=== PATIENT | female | born 1985 | race Caucasian/White ===

== ENCOUNTER 2016-12-31 09:40 | Emergency (ER) | payer OTHER ==
--- NOTE | 2016-12-31 10:31 | REP ---
Pelvis, right hip: Four views. History: Trauma. Findings: AP views of the pelvis and AP and frog-leg views of the right hip are presented. These show an intact bony pelvic ring. No hip or sacral fracture is seen. The visualized bowel gas pattern is normal. Proximal femurs are intact. Femoral heads are smooth and rounded. No hip fracture is seen. Impression: No fracture noted. Signed by Dannie Jackson MD 12/31/2016 01:55 P
--- NOTE | 2016-12-31 10:52 | EDDOCDS ---
Nurse's Notes [facility] Name: Jody Keenan Age: 31 yrs Sex: Female : 1985 Arrival Date: 12/31/2016 Time: 09:40 Bed PD Private MD: Mary Lou Arias M. Diagnosis: Contusion of right hip;Sprain of other specified parts of right knee Presentation: 12/31 09:44 Presenting complaint: Patient states: slipped on the ice and has pain to right hip and jo3 right knee. Adult Sepsis Screening: The patient does not have new or worsening altered mentation. Patient's respiratory rate is less than 22. Systolic blood pressure is greater than 100. Patient has a qSOFA score of 0- Negative Sepsis Screen. Suicide/Homicide risk assessment- the patient denies having any suicidal and/or homicidal ideations and does not present with any other emotional, behavioral or mental health complaints. Status: Patient is not a support services specialist or dependent. Transition of care: patient was not received from another setting of care. 09:44 Acuity: LORI Level 4 jo3 09:44 Method Of Arrival: Walkin/Carried/Asstd jo3 Triage Assessment: 09:45 General: Appears in no apparent distress. HIV screening NA for this visit Offered jo3 previously. Neurological: Level of Consciousness is awake, alert, Oriented to person, place, time. Respiratory: Airway is patent Respiratory effort is even, unlabored. Derm: Skin is pink, warm & dry. 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 Benadryl 25 mg Oral cap 1 cap as needed 2. Flovent Inhl as needed 3. Protonix 20 mg Oral TbEC 1 tab once daily 4. Wellbutrin 150 mg Oral 1 tab daily 5. Xanax 1 mg Oral tab as needed 6. Prozac 10 mg Oral cap once daily - PMHx: Anxiety; GERD; Kidney stones; Migraines; - PSHx: D & C; Lithotripsy; Gastric Bypass; Tubal ligation; Uterine Ablation; Adenoidectomy; Tonsillectomy; teeth extractions using general anesthesia; - Social history: Smoking status: Patient uses tobacco products, light tobacco smoker. No barriers to communication noted, The patient speaks fluent Tajik, Speaks appropriately for age. - Family history: Not pertinent. - : The pt / caregiver states he / she is not on anticoagulants. Home medication list is obtained from the patient. - Exposure Risk Screening:: None identified. Screenin:49 Screening information is obtained from the patient. Fall risk: No risks identified. jo3 Assistance ADL's: requires no assistance with activities of daily living. Abuse/DV Screen: The patient / caregiver reports he/she is: not in a situation that causes fear, pain or injury. Nutritional screening: No deficits noted. Advance Directives: There is no active DNR order. home support is adequate. Assessment: 10:49 General: Appears in no apparent distress, Behavior is appropriate for age, cooperative. jo3 Neurological: Level of Consciousness is awake, alert, Oriented to person, place, time. Respiratory: Airway is patent Respiratory effort is even, unlabored. Vital Signs: 09:42 BP 127 / 76; Pulse 50; Resp 20; Temp 98.1(O); Pulse Ox 100% on R/A; Weight 70.31 kg elp (R); Height 5 ft. 5 in. (165.10 cm) (R); Pain 10/10; 10:42 BP 115 / 61; Pulse 86; Resp 18; Temp 97.8(O); Pulse Ox 98% on R/A; Pain 10/10; ct3 09:42 Body Mass Index 25.79 (70.31 kg, 165.10 cm) [facility] Vitals: 09:42 Log In Time: December 31, 2016 at 09:40. elp ED Course: 09:41 Patient visited by Roselia Luu PCA. elp 09:41 Mary Lou Arias is Private Physician. elp 09:41 Patient moved to Waiting elp 09:42 Patient visited by Roselia Luu PCA. elp 09:42 Patient moved to Pre RCE elp 09:44 Triage Initiated jo3 09:47 Patient visited by Cleo Queen RN. jo3 09:47 [facility] btw 09:47 Jody De La Vega MD is Attending Physician. btw 09:47 Patient visited by Frank Poe PA. btw 09:47 Patient moved to Triage 1 jo3 09:54 Patient moved to TR1 ct3 10:17 Patient moved to PD2 / 27 ck1 10:18 Patient visited by Shilpi Anderson,SIMI. ck1 10:24 [facility]. btw 10:31 [facility] Payment Agreement was scanned into [employer] and attached to record. mm15 10:41 Crutch training done. Knee immobilizer applied on right knee. ct3 10:43 Patient visited by Masha Little PCA. ct3 10:49 The patient / caregiver is instructed regarding the plan of care and ED course. jo3 10:49 No IV's were initiated during this patient's visit. No procedures done that require jo3 assistance. Order Results: There are currently no results for this order. Outcome: 10:24 Discharge ordered by Provider. btw 10:49 Discharge Assessment: Patient awake, alert and oriented x 3. No cognitive and/or jo3 functional deficits noted. Patient verbalized understanding of disposition instructions. patient administered narcotics - no. The following High Risk Discharge criteria are identified: None. Discharged to home ambulatory. Condition: stable. Discharge instructions given to patient, Instructed on discharge instructions, follow up and referral plans. crutch walking, Demonstrated understanding of instructions, crutch walking, Pt was receptive of discharge instructions/ teaching. No special radiology studies were completed. Property sent home with patient. 10:51 Patient left the ED. jo3 Signatures: Shilpi Anderson,RN RN ck1 Cleo Queen RN RN jo3 Frank Poe PA PA btw Masha Little PCA EDUCATIONAL THERAPIST ct3 Stephen Lind mm15 Roselia Luu PCA EDUCATIONAL THERAPIST elp MTDD
--- NOTE | 2016-12-31 10:52 | EDDOCDS ---
Physician Documentation [facility] Name: Jody Keenan Age: 31 yrs Sex: Female : 1985 Arrival Date: 12/31/2016 Time: 09:40 Bed PD Private MD: Mary Lou Arias M. Disposition: 12/31/16 10:24 Discharged to Home/Self Care. Impression: Contusion of right hip, Sprain of other specified parts of right knee. - Condition is Stable. - Discharge Instructions: Knee Pain, Hip Pain. - Medication Reconciliation, Local Pharmacy Hours form. - Follow up: Orthopaedics, [facility]; When: Call to arrange an appointment; Reason: Further diagnostic work-up, Recheck today's complaints, Continuance of care. - Problem is new. - Symptoms are unchanged. Historical: - Allergies: PENICILLINS (Anaphylaxis); - Home Meds: 1. Benadryl 25 mg Oral cap 1 cap as needed 2. Flovent Inhl as needed 3. Protonix 20 mg Oral TbEC 1 tab once daily 4. Wellbutrin 150 mg Oral 1 tab daily 5. Xanax 1 mg Oral tab as needed 6. Prozac 10 mg Oral cap once daily - PMHx: Anxiety; GERD; Kidney stones; Migraines; - PSHx: D & C; Lithotripsy; Gastric Bypass; Tubal ligation; Uterine Ablation; Adenoidectomy; Tonsillectomy; teeth extractions using general anesthesia; - Social history: Smoking status: Patient uses tobacco products, light tobacco smoker. No barriers to communication noted, The patient speaks fluent Namibian, Speaks appropriately for age. - Family history: Not pertinent. - : The pt / caregiver states he / she is not on anticoagulants. Home medication list is obtained from the patient. - Exposure Risk Screening:: None identified. 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 5 in. (165.10 cm) (R); Pain 10/10; 10:42 BP 115 / 61; Pulse 86; Resp 18; Temp 97.8(O); Pulse Ox 98% on R/A; Pain 09/07; ct3 09:42 Body Mass Index 25.79 (70.31 kg, 165.10 cm) elp MDM: 09:54 Hip,AP,LAT to include Pelvis Ordered. EDMS 10:08 Financial registration complete. mm15 10:25 Knee Immobilizer ordered. btw 10:25 Crutches ordered. btw 10:31 [facility] Payment Agreement was scanned into [email or web address] and attached to record. mm15 Signatures: Dispatcher [employer] EDMS Cleo Queen,RN RN jo3 Frank Poe PA PA btw Stephen Lind mm15 The chart was reviewed and I authenticate all verbal orders and agree with the evaluation and treatment provided.Attachments: 10:31 [facility] Payment Agreement mm15 MTDD
--- NOTE | 2017-01-02 11:52 | EDDOCDS ---
Physician Documentation [facility] Name: Jody Keenan Age: 31 yrs Sex: Female : 1985 Arrival Date: 12/31/2016 Time: 09:40 Bed PD Private MD: Mary Lou Arias M. Disposition: 12/31/16 10:24 Discharged to Home/Self Care. Impression: Contusion of right hip, Sprain of other specified parts of right knee. - Condition is Stable. - Discharge Instructions: Knee Pain, Hip Pain. - Medication Reconciliation, Local Pharmacy Hours form. - Follow up: Orthopaedics, [facility]; When: Call to arrange an appointment; Reason: Further diagnostic work-up, Recheck today's complaints, Continuance of care. - Problem is new. - Symptoms are unchanged. Historical: - Allergies: PENICILLINS (Anaphylaxis); - Home Meds: 1. Benadryl 25 mg Oral cap 1 cap as needed 2. Flovent Inhl as needed 3. Protonix 20 mg Oral TbEC 1 tab once daily 4. Wellbutrin 150 mg Oral 1 tab daily 5. Xanax 1 mg Oral tab as needed 6. Prozac 10 mg Oral cap once daily - PMHx: Anxiety; GERD; Kidney stones; Migraines; - PSHx: D & C; Lithotripsy; Gastric Bypass; Tubal ligation; Uterine Ablation; Adenoidectomy; Tonsillectomy; teeth extractions using general anesthesia; - Social history: Smoking status: Patient uses tobacco products, light tobacco smoker. No barriers to communication noted, The patient speaks fluent Lebanese, Speaks appropriately for age. - Family history: Not pertinent. - : The pt / caregiver states he / she is not on anticoagulants. Home medication list is obtained from the patient. - Exposure Risk Screening:: None identified. 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 5 in. (165.10 cm) (R); Pain 10/10; 10:42 BP 115 / 61; Pulse 86; Resp 18; Temp 97.8(O); Pulse Ox 98% on R/A; Pain 09/07; ct3 09:42 Body Mass Index 25.79 (70.31 kg, 165.10 cm) elp MDM: 09:54 Hip,AP,LAT to include Pelvis Ordered. EDMS 10:08 Financial registration complete. mm15 10:25 Knee Immobilizer ordered. btw 10:25 Crutches ordered. btw 10: [facility] Payment Agreement was scanned into [employer] and attached to record. mm15 01/01 11:08 T-Sheet-- Draft Copy was scanned into [employer] and attached to record. gb Signatures: Dispatcher [employer] EDIA Cynthia Urias, Reg Reg gb Cleo Qeuen,RN RN joFrank Alcocer PA PA btw Stephen Lind 15 The chart was reviewed and I authenticate all verbal orders and agree with the evaluation and treatment provided.Attachments: 12/31 10:31 [facility] Payment Agreement mm15 01/01 11:08 T-Sheet-- Draft Copy gb Chart Complete MTDD
--- NOTE | 2017-01-02 11:52 | EDDOCDS ---
Nurse's Notes [facility] Name: Jody Keenan Age: 31 yrs Sex: Female : 1985 Arrival Date: 12/31/2016 Time: 09:40 Bed PD Private MD: Mary Lou Arias M. Diagnosis: Contusion of right hip;Sprain of other specified parts of right knee Presentation: 12/31 09:44 Presenting complaint: Patient states: slipped on the ice and has pain to right hip and jo3 right knee. Adult Sepsis Screening: The patient does not have new or worsening altered mentation. Patient's respiratory rate is less than 22. Systolic blood pressure is greater than 100. Patient has a qSOFA score of 0- Negative Sepsis Screen. Suicide/Homicide risk assessment- the patient denies having any suicidal and/or homicidal ideations and does not present with any other emotional, behavioral or mental health complaints. Status: Patient is not a sales service rep or dependent. Transition of care: patient was not received from another setting of care. 09:44 Acuity: LORI Level 4 jo3 09:44 Method Of Arrival: Walkin/Carried/Asstd jo3 Triage Assessment: 09:45 General: Appears in no apparent distress. HIV screening NA for this visit Offered jo3 previously. Neurological: Level of Consciousness is awake, alert, Oriented to person, place, time. Respiratory: Airway is patent Respiratory effort is even, unlabored. Derm: Skin is pink, warm & dry. 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 Benadryl 25 mg Oral cap 1 cap as needed 2. Flovent Inhl as needed 3. Protonix 20 mg Oral TbEC 1 tab once daily 4. Wellbutrin 150 mg Oral 1 tab daily 5. Xanax 1 mg Oral tab as needed 6. Prozac 10 mg Oral cap once daily - PMHx: Anxiety; GERD; Kidney stones; Migraines; - PSHx: D & C; Lithotripsy; Gastric Bypass; Tubal ligation; Uterine Ablation; Adenoidectomy; Tonsillectomy; teeth extractions using general anesthesia; - Social history: Smoking status: Patient uses tobacco products, light tobacco smoker. No barriers to communication noted, The patient speaks fluent Maltese, Speaks appropriately for age. - Family history: Not pertinent. - : The pt / caregiver states he / she is not on anticoagulants. Home medication list is obtained from the patient. - Exposure Risk Screening:: None identified. Screenin:49 Screening information is obtained from the patient. Fall risk: No risks identified. jo3 Assistance ADL's: requires no assistance with activities of daily living. Abuse/DV Screen: The patient / caregiver reports he/she is: not in a situation that causes fear, pain or injury. Nutritional screening: No deficits noted. Advance Directives: There is no active DNR order. home support is adequate. Assessment: 10:49 General: Appears in no apparent distress, Behavior is appropriate for age, cooperative. jo3 Neurological: Level of Consciousness is awake, alert, Oriented to person, place, time. Respiratory: Airway is patent Respiratory effort is even, unlabored. Vital Signs: 09:42 BP 127 / 76; Pulse 50; Resp 20; Temp 98.1(O); Pulse Ox 100% on R/A; Weight 70.31 kg elp (R); Height 5 ft. 5 in. (165.10 cm) (R); Pain 10/10; 10:42 BP 115 / 61; Pulse 86; Resp 18; Temp 97.8(O); Pulse Ox 98% on R/A; Pain 10/10; ct3 09:42 Body Mass Index 25.79 (70.31 kg, 165.10 cm) [facility] Vitals: 09:42 Log In Time: December 31, 2016 at 09:40. elp ED Course: 09:41 Patient visited by Roselia Luu PCA. elp 09:41 Mary Lou Arias is Private Physician. elp 09:41 Patient moved to Waiting elp 09:42 Patient visited by Roselia Luu PCA. elp 09:42 Patient moved to Pre RCE elp 09:44 Triage Initiated jo3 09:47 Patient visited by Cleo Queen RN. jo3 09:47 [facility]. btw 09:47 Jody De La Vega MD is Attending Physician. btw 09:47 Patient visited by Frank Poe PA. btw 09:47 Patient moved to Triage 1 jo3 09:54 Patient moved to TR1 ct3 10:17 Patient moved to PD2 / 27 ck1 10:18 Patient visited by Shilpi Anderson RN. ck1 10:[facility] btw 10:31 [facility] Payment Agreement was scanned into [employer] and attached to record. mm15 10:41 Crutch training done. Knee immobilizer applied on right knee. ct3 10:43 Patient visited by Masha Little PCA. ct3 10:49 The patient / caregiver is instructed regarding the plan of care and ED course. jo3 10:49 No IV's were initiated during this patient's visit. No procedures done that require jo3 assistance. 11:01 Hip,AP,LAT to include Pelvis Returned. [facility] 01/01 11:08 T-Sheet-- Draft Copy was scanned into [employer] and attached to record. gb Order Results: Radiology Order: Hip,AP,LAT to include Pelvis Test: Hip,AP,LAT to include Pelvis REASON FOR EXAMINATION: Trauma; Pelvis, right hip: Four views.; ; History: Trauma.; ; Findings: AP views of the pelvis and AP and frog-leg views of the right hip are; presented. These show an intact bony pelvic ring. No hip or sacral fracture is; seen. The visualized bowel gas pattern is normal. Proximal femurs are intact.; Femoral heads are smooth and rounded. No hip fracture is seen.; ; Impression:; ; No fracture noted.; ; ; Signed by; Dannie Jackson MD 12/31/2016 01:55 P; Outcome: 12/31 10:24 Discharge ordered by Provider. btw 10:49 Discharge Assessment: Patient awake, alert and oriented x 3. No cognitive and/or jo3 functional deficits noted. Patient verbalized understanding of disposition instructions. patient administered narcotics - no. The following High Risk Discharge criteria are identified: None. Discharged to home ambulatory. Condition: stable. Discharge instructions given to patient, Instructed on discharge instructions, follow up and referral plans. crutch walking, Demonstrated understanding of instructions, crutch walking, Pt was receptive of discharge instructions/ teaching. No special radiology studies were completed. Property sent home with patient. 10:51 Patient left the ED. jo3 Signatures: Dispatcher [facility] Cynthia Urias, Reg Reg gb Monica,Shilpi,RN RN ck1 Cleo Queen,RN RN jo3 Frank Poe PA PA btw Anabel, Masha, GROUND WOOD SUPERVISOR GROUND WOOD SUPERVISOR ct3 Stephen Lind mm15 Roselia Luu, GROUND WOOD SUPERVISOR GROUND WOOD SUPERVISOR elp Chart Complete MTDD
--- NOTE | 2017-01-02 11:52 | EDDOCDS ---
Physician Documentation [facility] Name: Jody Keenan Age: 31 yrs Sex: Female : 1985 Arrival Date: 12/31/2016 Time: 09:40 Bed PD Private MD: Mary Lou Arias M. Disposition: 12/31/16 10:24 Discharged to Home/Self Care. Impression: Contusion of right hip, Sprain of other specified parts of right knee. - Condition is Stable. - Discharge Instructions: Knee Pain, Hip Pain. - Medication Reconciliation, Local Pharmacy Hours form. - Follow up: Orthopaedics, [facility]; When: Call to arrange an appointment; Reason: Further diagnostic work-up, Recheck today's complaints, Continuance of care. - Problem is new. - Symptoms are unchanged. Historical: - Allergies: PENICILLINS (Anaphylaxis); - Home Meds: 1. Benadryl 25 mg Oral cap 1 cap as needed 2. Flovent Inhl as needed 3. Protonix 20 mg Oral TbEC 1 tab once daily 4. Wellbutrin 150 mg Oral 1 tab daily 5. Xanax 1 mg Oral tab as needed 6. Prozac 10 mg Oral cap once daily - PMHx: Anxiety; GERD; Kidney stones; Migraines; - PSHx: D & C; Lithotripsy; Gastric Bypass; Tubal ligation; Uterine Ablation; Adenoidectomy; Tonsillectomy; teeth extractions using general anesthesia; - Social history: Smoking status: Patient uses tobacco products, light tobacco smoker. No barriers to communication noted, The patient speaks fluent Wallisian, Speaks appropriately for age. - Family history: Not pertinent. - : The pt / caregiver states he / she is not on anticoagulants. Home medication list is obtained from the patient. - Exposure Risk Screening:: None identified. 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 5 in. (165.10 cm) (R); Pain 10/10; 10:42 BP 115 / 61; Pulse 86; Resp 18; Temp 97.8(O); Pulse Ox 98% on R/A; Pain 09/07; ct3 09:42 Body Mass Index 25.79 (70.31 kg, 165.10 cm) elp MDM: 09:54 Hip,AP,LAT to include Pelvis Ordered. EDMS 10:08 Financial registration complete. mm15 10:25 Knee Immobilizer ordered. btw 10:25 Crutches ordered. btw 10: [facility] Payment Agreement was scanned into [employer] and attached to record. mm15 01/01 11:08 T-Sheet-- Draft Copy was scanned into [employer] and attached to record. gb Signatures: Dispatcher [employer] EDWI Cynthia Urias, Reg Reg gb Cleo Queen,RN RN joFrank Alcocer PA PA btw Stephen Lind 15 The chart was reviewed and I authenticate all verbal orders and agree with the evaluation and treatment provided.Attachments: 12/31 10:31 [facility] Payment Agreement mm15 01/01 11:08 T-Sheet-- Draft Copy gb Chart Complete MTDD
== END 2016-12-31 10:51 | disposition home or self-care (01) ==
LOC: M ED 09:40
DX: S86.811A Strain of other muscle(s) and tendon(s) at lower leg level, right leg, initial encounter (principal); S70.01XA Contusion of right hip, initial encounter; W00.0XXA Fall on same level due to ice and snow, initial encounter; Y92.096 Garden or yard of other non-institutional residence as the place of occurrence of the external cause; Y93.89 Activity, other specified; Y99.8 Other external cause status; F41.9 Anxiety disorder, unspecified; K21.9 Gastro-esophageal reflux disease without esophagitis; G43.909 Migraine, unspecified, not intractable, without status migrainosus; Z79.899 Other long term (current) drug therapy; Z88.0 Allergy status to penicillin; Z98.84 Bariatric surgery status

== ENCOUNTER 2017-04-13 15:58 | Emergency (ER) | payer OTHER ==
[~2017-04-13] VITALS: Ht 165.1 cm; Wt 65.8 kg
[2017-04-13] MEDS ORDERED: FLUO10CA9 PO (16:12)
[2017-04-13] MEDS ORDERED: BENA25CA4 PO (16:12)
[2017-04-13] MEDS ORDERED: KLON0.5T (16:12)
[2017-04-13] MEDS ORDERED: ONDANSETRON 4MG/2ML VIAL (J2405) IV ONE (16:45)
[2017-04-13] MEDS ORDERED: MORPHINE 4 MG/ML 1ML SYRINGE IV PRN (16:45)
[2017-04-13 17:26] LABS: BASO % 0.5 % (0.0-1.0); EOS # 0.2 K/mm3 (0.0-0.50); EOS % 2.6 % (0.0-3.0); LARGE UNSTAINED CELL # 0.2 K/mm3 (0.0-0.4); LARGE UNSTAINED CELL % 3.1 % (0.0-4.0); LYMPH # 1.9 K/mm3 (1.5-4.5); LYMPH % 31.5 % (24.0-44.0); MEAN CORPUSCULAR HEMOGLOBIN 28.9 pg (27.0-33.0); MEAN CORPUSCULAR HGB CONC 32.2 g/dl (32.0-36.5); MEAN CORPUSCULAR VOLUME 89.6 fl (80.0-96.0); MONO # 0.4 K/mm3 (0.0-0.8); MONO % 6.6 % (0.0-5.0); NEUTROPHILS # 3.3 K/mm3 (1.8-7.7); NEUTROPHILS % 55.7 % (36.0-66.0); PLATELET COUNT, AUTOMATED 258 k/mm3 (150-450); RED CELL DISTRIBUTION WIDTH 15.6 % (11.5-14.5); WHITE BLOOD COUNT 5.9 K/mm3 (4.0-10.0)
[2017-04-13] MEDS ORDERED: MORPHINE 4 MG/ML 1ML SYRINGE IV ONE (18:15)
[2017-04-13 18:44] LABS: ALBUMIN 3.6 GM/DL (3.2-5.2); ALKALINE PHOSPHATASE 109 U/L (45-117); ALT/SGPT 14 U/L (12-78); AMYLASE 70 U/L (25-115); ANION GAP 6 MEQ/L (8-16); AST/SGOT 11 U/L (15-37); BILIRUBIN,DIRECT < 0.1 MG/DL (0.0-0.2); BILIRUBIN,TOTAL 0.2 MG/DL (0.2-1.0); BLOOD UREA NITROGEN 14 MG/DL (7-18); CALCIUM LEVEL 8.4 MG/DL (8.5-10.1); CARBON DIOXIDE LEVEL 27 MEQ/L (21-32); CHLORIDE LEVEL 105 MEQ/L (98-107); CREATININE FOR GFR 0.81 MG/DL (0.55-1.02); GLOMERULAR FILTRATION RATE > 60.0 (>60); GLUCOSE, FASTING 83 MG/DL (70-105); POTASSIUM SERUM 4.8 MEQ/L (3.5-5.1); SODIUM LEVEL 138 MEQ/L (136-145); TOTAL PROTEIN 7.2 GM/DL (6.4-8.2)
[2017-04-13] MEDS ORDERED: ISOVUE-370 76% 100ML VIAL (Q9967) As Ordered ONE (19:00)
--- NOTE | 2017-04-13 19:27 | REP ---
Clinical: Left lower quadrant pain. Technique: Axial contrast enhanced images from the lung bases to the pubic symphysis using 100 ml Isovue 370 intravenous contrast material with coronal and sagittal re-formations. Comparison: 10/06/2016. Findings: Lung bases clear. Visualized heart and pericardium normal. Liver, spleen, pancreas, gallbladder, bilateral adrenal glands and kidneys are normal. The enteric system is without obstruction or acute inflammatory process. Evidence for prior gastric bypass surgery. Normal terminal ileum and appendix identified in the right lower quadrant. Pelvis demonstrates normal bladder and uterus. Small amount of free fluid in the pelvis along with rim-enhancing right ovarian cyst suggests ruptured follicle and may be related to patient's symptoms. No free air. No adenopathy. Vasculature is normal. Surrounding musculoskeletal structures normal. Impression: 1. Small amount of free fluid in the right meena pelvis with rim enhancing cyst suggests ruptured ovarian follicle and should be correlated with the patient's symptoms. 2. Otherwise normal contrast enhanced CT of the abdomen and pelvis. Signed by Dionicio Joe MD 04/13/2017 07:18 P
[2017-04-13] MEDS ORDERED: KETOROLAC 30 MG/ML VIAL (J1885) IV ONE (19:30)
[2017-04-13] MEDS ORDERED: NAPR500T PO (19:54)
[2017-04-13] MEDS ORDERED: NORCO 5/325MG TABLET (BULK FOR ED) PO ONE (20:00)
[2017-04-13 20:09] VITALS: BP 126/85
== END 2017-04-13 20:20 | disposition home or self-care (01) ==
LOC: M ED 16:53
DX: N83.01 Follicular cyst of right ovary (principal); F17.200 Nicotine dependence, unspecified, uncomplicated; Z87.442 Personal history of urinary calculi; Z98.84 Bariatric surgery status; Z79.899 Other long term (current) drug therapy; Z88.0 Allergy status to penicillin

== ENCOUNTER 2017-04-25 22:36 | Emergency (ER) | payer OTHER ==
[~2017-04-25] VITALS: Ht 165.1 cm; Wt 70.3 kg
[~2017-04-25 22:36] MED LIST: BENA25CA4 PO; FLUO10CA9 PO; KLON0.5T; NAPR500T PO
[2017-04-25] MEDS ORDERED: NS 1,000 ML IV ONE (23:15)
[2017-04-25] MEDS ORDERED: KETOROLAC 30 MG/ML VIAL (J1885) IV ONE (23:15)
[2017-04-25 23:56] LABS: BASO % 0.3 % (0.0-1.0); EOS # 0.2 K/mm3 (0.0-0.50); EOS % 3.2 % (0.0-3.0); LARGE UNSTAINED CELL # 0.2 K/mm3 (0.0-0.4); LARGE UNSTAINED CELL % 3.5 % (0.0-4.0); LYMPH # 2.5 K/mm3 (1.5-4.5); LYMPH % 48.9 % (24.0-44.0); MEAN CORPUSCULAR HEMOGLOBIN 28.9 pg (27.0-33.0); MEAN CORPUSCULAR HGB CONC 32.6 g/dl (32.0-36.5); MEAN CORPUSCULAR VOLUME 88.7 fl (80.0-96.0); MONO # 0.3 K/mm3 (0.0-0.8); MONO % 6.6 % (0.0-5.0); NEUTROPHILS # 1.8 K/mm3 (1.8-7.7); NEUTROPHILS % 37.6 % (36.0-66.0); PLATELET COUNT, AUTOMATED 285 k/mm3 (150-450); RED CELL DISTRIBUTION WIDTH 15.6 % (11.5-14.5); WHITE BLOOD COUNT 4.8 K/mm3 (4.0-10.0)
[2017-04-26] MEDS ORDERED: MORPHINE 4 MG/ML 1ML SYRINGE IV ONE
[2017-04-26 00:03] LABS: ALBUMIN 3.8 GM/DL (3.2-5.2); ALBUMIN/GLOBULIN RATIO 0.93 (1.00-1.93); ALKALINE PHOSPHATASE 94 U/L (45-117); ALT/SGPT 17 U/L (12-78); AMYLASE 54 U/L (25-115); ANION GAP 4 MEQ/L (8-16); AST/SGOT 11 U/L (15-37); BILIRUBIN,DIRECT < 0.1 MG/DL (0.0-0.2); BILIRUBIN,TOTAL 0.2 MG/DL (0.2-1.0); BLOOD UREA NITROGEN 7 MG/DL (7-18); CALCIUM LEVEL 8.8 MG/DL (8.5-10.1); CARBON DIOXIDE LEVEL 30 MEQ/L (21-32); CHLORIDE LEVEL 101 MEQ/L (98-107); CREATININE FOR GFR 0.81 MG/DL (0.55-1.02); GLOMERULAR FILTRATION RATE > 60.0 (>60); GLUCOSE, FASTING 74 MG/DL (70-105); SODIUM LEVEL 135 MEQ/L (136-145); TOTAL PROTEIN 7.9 GM/DL (6.4-8.2)
--- NOTE | 2017-04-26 00:30 | REPUSA ---
CLINICAL HISTORY: Abdominal pain. TECHNIQUE: Multiple axial, sagittal and coronal CT images were obtained through the abdomen and pelvi s without administration of oral or IV contrast material. COMMENTS: The liver is of uniform attenuation without mass or defect. There is no intra or extrahepatic biliary ductal dilatation. The spleen is normal. The gallbladder is within normal limits. The pancreas is of normal contour and attenuation characteristics. There is no evidence of adrenal mass. Changes from prior gastric bypass surgery. 3 mm right renal nonobstructing calculus. The kidneys are normal in size, shape and configuration. No renal or ureteral calculi are identified. There is no hydroureter or hydronephrosis. Bilateral prominent extrarenal pelves. There is no evidence for appendicitis. There is no bowel wall thickening. No evidence for small or la rge bowel obstruction. There is no evidence of abdominal ascites or lymphadenopathy. There is no evidence of intrinsic or extrinsic bladder mass. There is no pelvic ascites or lymphadeno cecilia. Mild diffuse thickening of the bladder. Images of the lung bases show no evidence of pleural or parenchymal mass. There are no pleural effusi ons. The bony structures are free of lytic or blastic lesions. Multilevel degenerative changes are seen in volving the thoracolumbar spine. Scattered calcifications are seen involving the aorta and major branches compatible with atherosclero sis. Mild chronic compression deformity of T11 vertebral body. IMPRESSION: Thickened bladder suggestive of cystitis. Bilateral prominent extrarenal pelves. Mild fullness of the left collecting system. Recent passage of a calculus versus an ascending urinary tract infection. Please correlate with urinalysis. Right renal nonobstructing calculus. Gastric bypass surgery. Constipation. Thank you for your kind referral of this patient.
[2017-04-26 01:10] VITALS: BP 104/59
== END 2017-04-26 01:16 | disposition home or self-care (01) ==
LOC: M ED 23:29
DX: N20.0 Calculus of kidney (principal); K59.00 Constipation, unspecified; F32.9 Major depressive disorder, single episode, unspecified; F17.200 Nicotine dependence, unspecified, uncomplicated; Z98.84 Bariatric surgery status; Z88.0 Allergy status to penicillin

== ENCOUNTER → 2017-05-20 | Outpatient (REF) | payer OTHER ==
[2017-05-20 20:44] LABS: BASO % 0.4 % (0.0-1.0); EOS % 0.4 % (0.0-3.0); LARGE UNSTAINED CELL # 0.1 K/mm3 (0.0-0.4); LARGE UNSTAINED CELL % 2.6 % (0.0-4.0); LYMPH # 1.8 K/mm3 (1.5-4.5); LYMPH % 34.5 % (24.0-44.0); MEAN CORPUSCULAR HEMOGLOBIN 29.3 pg (27.0-33.0); MEAN CORPUSCULAR HGB CONC 33.1 g/dl (32.0-36.5); MEAN CORPUSCULAR VOLUME 88.6 fl (80.0-96.0); MONO # 0.3 K/mm3 (0.0-0.8); MONO % 6.9 % (0.0-5.0); NEUTROPHILS # 2.6 K/mm3 (1.8-7.7); NEUTROPHILS % 55.2 % (36.0-66.0); PLATELET COUNT, AUTOMATED 284 k/mm3 (150-450); RED CELL DISTRIBUTION WIDTH 15.5 % (11.5-14.5); WHITE BLOOD COUNT 4.7 K/mm3 (4.0-10.0)
== END ==
LOC: M SFHCLERA 17:27
PROVIDERS: ATTEND Nurse Practitioner Family
DX: R59.0 Localized enlarged lymph nodes (principal)

== ENCOUNTER 2017-06-21 09:41 | Emergency (ER) | payer OTHER ==
[~2017-06-21] VITALS: Ht 165.1 cm; Wt 68.2 kg
[2017-06-21 09:42] VITALS: BP 120/65
[2017-06-21] MEDS ORDERED: ADDE10CA3 PO (09:53)
[2017-06-21] MEDS ORDERED: XANA0.5T PO (09:53)
[2017-09-24] MEDS ORDERED: IBUP-1022 PO (08:21)
[2017-09-24] MEDS ORDERED: NAPR500T3 PO (08:33)
[2017-09-24] MEDS ORDERED: ACET30TAB PO (08:33)
== END 2017-06-21 10:22 | disposition home or self-care (01) ==
LOC: M ED 09:41
DX: J04.0 Acute laryngitis (principal); F17.210 Nicotine dependence, cigarettes, uncomplicated; Z88.0 Allergy status to penicillin; Z79.899 Other long term (current) drug therapy

== ENCOUNTER 2017-06-28 21:43 | Emergency (ER) | payer OTHER ==
[~2017-06-28] VITALS: Ht 165.1 cm; Wt 67.9 kg
[~2017-06-28 21:43] MED LIST changes: +ADDE10CA3 PO; +XANA0.5T PO
--- NOTE | 2017-06-28 23:20 | REPUSA ---
Clinical history: Pain. Findings: Real-time transabdominal and transvaginal ultrasound images of the pelvis were obtained. An anteverted uterus is noted, measuring 7.7 x 4.0 x 5.0 cm. The uterus demonstrates normal echotexture and echogenicity. The endometrial stripe measures 4 mm and is within normal limits. The right ovary measures 4.2 x 2.7 x 3.7 cm. There is a complex right ovarian cyst measuring 1.9 x 1.6 x 2.1 cm. The left ovary measures 3.0 x 2.3 x 3.0 cm. No adnexal masses are seen. Color Doppler flow is seen within both ovaries. There is no evidence of free fluid. Impression: Hemorrhagic right ovarian cyst. Otherwise unremarkable study.
[2017-06-28] MEDS ORDERED: KETOROLAC 60 MG/2 ML VIAL (J1885) IM ONE (23:30)
[2017-06-28] MEDS ORDERED: ONDANSETRON 4 MG ORAL DISINTEGRATING TAB (S0181) PO ONE (23:45)
[2017-06-28] MEDS ORDERED: PERCOCET 5MG/325MG TAB PO ONE (23:45)
[2017-06-29] MEDS ORDERED: ONDA4TAB6 PO (00:12)
[2017-06-29] MEDS ORDERED: OXYCODONE/APAP 5MG/325MG(BULK FOR ED) 1 TABLET PO ONE (00:15)
[2017-06-29 00:18] VITALS: BP 131/68
[2017-09-24] MEDS ORDERED: IBUP-1022 PO (08:21)
[2017-09-24] MEDS ORDERED: ACET30TAB PO (08:33)
[2017-09-24] MEDS ORDERED: NAPR500T3 PO (08:33)
== END 2017-06-29 00:20 | disposition home or self-care (01) ==
LOC: M ED 21:43
DX: N83.201 Unspecified ovarian cyst, right side (principal); Z72.0 Tobacco use
CPT/HCPCS: 76830; 76856; 81025; 93976; 96372; 99283; J1885

== ENCOUNTER 2017-07-11 22:19 | Emergency (ER) | payer OTHER ==
[~2017-07-11] VITALS: Ht 165.1 cm; Wt 68.1 kg
[~2017-07-11 22:19] MED LIST changes: +ONDA4TAB6 PO
[2017-07-11] MEDS ORDERED: APAP/CODEINE (22:30)
[2017-07-11] MEDS ORDERED: diphenhydrAMINE INJ 50MG/ML VIAL (J1200) IV STA (22:49)
[2017-07-11] MEDS ORDERED: METOCLOPRAMIDE INJ 10MG/2ML VIAL (J2765) IV ONE (23:00)
[2017-07-11] MEDS ORDERED: NS 1,000 ML IV ONE (23:00)
[2017-07-11] MEDS ORDERED: KETOROLAC 30 MG/ML VIAL (J1885) IV ONE (23:00)
[2017-07-11] MEDS ORDERED: REGL10TA6 PO (23:41)
[2017-07-12 00:09] VITALS: BP 121/84
[2017-09-24] MEDS ORDERED: IBUP-1022 PO (08:21)
[2017-09-24] MEDS ORDERED: ACET30TAB PO (08:33)
[2017-09-24] MEDS ORDERED: NAPR500T3 PO (08:33)
== END 2017-07-12 00:12 | disposition home or self-care (01) ==
LOC: M ED 22:19
DX: G43.909 Migraine, unspecified, not intractable, without status migrainosus (principal); F17.210 Nicotine dependence, cigarettes, uncomplicated; Z88.0 Allergy status to penicillin
CPT/HCPCS: 96361; 96374; 96375; 99283; J1200; J1885; J2765

== ENCOUNTER → 2017-07-21 | Outpatient (REF) | payer OTHER ==
[~2017-07-21] MED LIST changes: +ACET30TAB PO; +ALBU17IN PO; +APAP/CODEINE; +BENZ100C5 PO; +IBUP-1022 PO; +MUCI600T37 PO; +NAPR500T3 PO; +PANT40TA2 PO; +REGL10TA6 PO; +SUCR1TAB56 PO; +SUDA30TA PO
== END ==
LOC: M SFHCLERA 08:54
PROVIDERS: ATTEND Physician Assistant
DX: Z00.00 Encounter for general adult medical examination without abnormal findings (principal); Z53.8 Procedure and treatment not carried out for other reasons

== ENCOUNTER → 2017-07-22 | Outpatient (REF) | payer OTHER | LOC: M SFHCLERA 15:47 | PROVIDERS: ATTEND Physician Assistant | DX: Z00.00 Encounter for general adult medical examination without abnormal findings (principal) ==

== ENCOUNTER 2017-08-29 12:04 | Emergency (ER) | payer OTHER ==
[~2017-08-29] VITALS: Ht 165.1 cm; Wt 68.2 kg
[~2017-08-29 12:04] MED LIST changes: -ACET30TAB PO; -ALBU17IN PO; -BENZ100C5 PO; -IBUP-1022 PO; -MUCI600T37 PO; -NAPR500T3 PO; -PANT40TA2 PO; -SUCR1TAB56 PO; -SUDA30TA PO
[2017-08-29] MEDS ORDERED: PANT40TA2 PO (12:29)
[2017-08-29] MEDS ORDERED: SUDA30TA PO (12:29)
[2017-08-29] MEDS ORDERED: BENA25CA4 PO (12:29)
[2017-08-29] MEDS ORDERED: SUCR1TAB56 PO (12:29)
[2017-08-29] MEDS ORDERED: ALBU17IN PO (12:29)
--- NOTE | 2017-08-29 13:27 | REP ---
Chest two views HISTORY: Cough Comparison: 05/02/2016 The lungs are clear. The heart is normal in size. The pulmonary vasculature is normal in appearance. The bony structure is intact. IMPRESSION: No acute disease. Signed by Vlad Rosado MD 08/29/2017 01:18 P
[2017-08-29] MEDS ORDERED: MUCI600T37 PO (13:40)
[2017-08-29] MEDS ORDERED: BENZ100C5 PO (13:40)
[2017-08-29 13:44] VITALS: BP 12/84
[2017-09-24] MEDS ORDERED: IBUP-1022 PO (08:21)
[2017-09-24] MEDS ORDERED: ACET30TAB PO (08:33)
[2017-09-24] MEDS ORDERED: NAPR500T3 PO (08:33)
== END 2017-08-29 13:52 | disposition home or self-care (01) ==
LOC: M ED 12:04
DX: J06.9 Acute upper respiratory infection, unspecified (principal); B34.9 Viral infection, unspecified; F41.9 Anxiety disorder, unspecified; F33.9 Major depressive disorder, recurrent, unspecified; Z98.84 Bariatric surgery status; Z79.899 Other long term (current) drug therapy; Z88.0 Allergy status to penicillin; F17.210 Nicotine dependence, cigarettes, uncomplicated

== ENCOUNTER 2017-09-02 16:50 | Emergency (ER) | payer OTHER ==
[~2017-09-02] VITALS: Ht 165.1 cm; Wt 68.2 kg
[2017-09-02 16:50] VITALS: BP 132/91
[~2017-09-02 16:50] MED LIST changes: -ACET30TAB PO; -IBUP-1022 PO; -NAPR500T3 PO
[2017-09-24] MEDS ORDERED: IBUP-1022 PO (08:21)
[2017-09-24] MEDS ORDERED: NAPR500T3 PO (08:33)
[2017-09-24] MEDS ORDERED: ACET30TAB PO (08:33)
== END 2017-09-02 17:13 | disposition left against medical advice (07) ==
LOC: M ED 16:50
DX: R10.9 Unspecified abdominal pain (principal); Z53.29 Procedure and treatment not carried out because of patient's decision for other reasons

== ENCOUNTER → 2017-09-02 | Outpatient (REF) | payer OTHER ==
[~2017-09-02] MED LIST changes: +ACET30TAB PO; +ALBU17IN PO; +BENZ100C5 PO; +IBUP-1022 PO; +MUCI600T37 PO; +NAPR500T3 PO; +PANT40TA2 PO; +SUCR1TAB56 PO; +SUDA30TA PO
== END ==
LOC: M SFHCLERA 18:27
PROVIDERS: ATTEND Nurse Practitioner Family
DX: R11.11 Vomiting without nausea (principal)

== ENCOUNTER → 2017-11-12 | Outpatient (REF) | payer OTHER ==
[~2017-11-12] MED LIST changes: +ACET30TAB PO; +ALPR0.5T3; +IBUP-1022 PO; +NAPR500T3 PO; +PEPC1TAB4 PO; +SUCR1SS PO; +VENL150C43
[2017-11-12 11:43] LABS: MEAN CORPUSCULAR HEMOGLOBIN 27.5 pg (27.0-33.0); MEAN CORPUSCULAR HGB CONC 31.7 g/dl (32.0-36.5); MEAN CORPUSCULAR VOLUME 86.6 fl (80.0-96.0); PLATELET COUNT, AUTOMATED 329 10^3/uL (150-450); RED CELL DISTRIBUTION WIDTH 15.1 % (11.5-14.5)
[2017-11-12 12:03] LABS: ERYTHROCYTE SEDIMENTATION RATE 12 mm/hr (0-20)
[2017-11-14 00:06] LABS: Lyme Disease IgG/IgM Antibodie <0.91 ISR (0.00-0.90); Lyme Disease IgM Ab Quantitati <0.80 index (0.00-0.79)
== END ==
LOC: M SFHCLERA 09:45
PROVIDERS: ATTEND Physician Assistant
DX: R00.2 Palpitations (principal); M25.50 Pain in unspecified joint

== ENCOUNTER 2017-11-17 07:02 | Emergency (ER) | payer OTHER ==
[~2017-11-17] VITALS: Ht 165.1 cm; Wt 68.2 kg
[~2017-11-17 07:02] MED LIST changes: -ALPR0.5T3; -PEPC1TAB4 PO; -SUCR1SS PO; -VENL150C43
[2017-11-17] MEDS ORDERED: ALPR0.5T3 (07:10)
[2017-11-17] MEDS ORDERED: VENL150C43 (07:10)
[2017-11-17] MEDS ORDERED: NS 1,000 ML IV ONE (07:45)
[2017-11-17] MEDS ORDERED: ONDANSETRON 4MG/2ML VIAL (J2405) IV ONE (07:45)
[2017-11-17] MEDS ORDERED: GI COCKTAIL 50ML BTL(HYOSCYAMINE/MAALOX/LIDOCAINE VISCOUS)(1:3:1) PO ONE (07:45)
[2017-11-17] MEDS ORDERED: FAMOTIDINE IV BAG 20 MG in APPROPRIATE DILUENT 1 EA IV ONE (07:45)
[2017-11-17 08:28] LABS: BASO % 0.3 % (0.0-1.0); EOS # 0.2 10^3/uL (0.0-0.50); EOS % 3.3 % (0.0-3.0); IMMATURE GRANULOCYTE % 0.3 % (0-0); LYMPH % 29.8 % (24.0-44.0); MEAN CORPUSCULAR HEMOGLOBIN 27.7 pg (27.0-33.0); MEAN CORPUSCULAR HGB CONC 32.8 g/dl (32.0-36.5); MEAN CORPUSCULAR VOLUME 84.5 fl (80.0-96.0); MONO # 0.5 10^3/uL (0.0-0.8); MONO % 7.9 % (0.0-5.0); NEUTROPHILS % 58.4 % (36.0-66.0); PLATELET COUNT, AUTOMATED 291 10^3/uL (150-450); RED CELL DISTRIBUTION WIDTH 15.4 % (11.5-14.5); WHITE BLOOD COUNT 6.8 10^3/uL (4.0-10.0)
[2017-11-17] MEDS ORDERED: SUCRALFATE SUSP 1GM/10ML UD PO ONE ×2 (08:30→12:15)
[2017-11-17] MEDS ORDERED: MORPHINE 4 MG/ML 1ML SYRINGE IV PRN (08:30)
[2017-11-17 08:51] LABS: ALKALINE PHOSPHATASE 124 U/L (45-117); ALT/SGPT 20 U/L (12-78); ANION GAP 9 MEQ/L (8-16); AST/SGOT 13 U/L (7-37); BILIRUBIN,DIRECT < 0.1 MG/DL (0.0-0.2); BILIRUBIN,TOTAL 0.2 MG/DL (0.2-1.0); BLOOD UREA NITROGEN 7 MG/DL (7-18); CALCIUM LEVEL 8.6 MG/DL (8.5-10.1); CARBON DIOXIDE LEVEL 24 MEQ/L (21-32); CHLORIDE LEVEL 104 MEQ/L (98-107); CREATININE FOR GFR 0.67 MG/DL (0.55-1.02); GLOMERULAR FILTRATION RATE > 60.0 (>60); GLUCOSE, FASTING 89 MG/DL (70-105); HCG, SERUM QUANTITATIVE < 1.0 MIU/ML; SODIUM LEVEL 137 MEQ/L (136-145)
[2017-11-17] MEDS ORDERED: GASTROGRAFIN SOLUTION 30ML (Q9963) As Ordered ONE (09:16)
[2017-11-17] MEDS ORDERED: GASTROGRAFIN SOLUTION 30ML PO ONE (09:30)
[2017-11-17] MEDS ORDERED: GASTROGRAFIN SOLUTION 30ML (Q9963) PO ONE (10:00)
[2017-11-17] MEDS ORDERED: ISOVUE-370 76% 100ML VIAL (Q9967) As Ordered ONE (10:24)
[2017-11-17] MEDS ORDERED: PEPC1TAB4 PO (12:01)
[2017-11-17] MEDS ORDERED: SUCR1SS PO (12:09)
[2017-11-17 12:15] VITALS: BP 117/71
--- NOTE | 2017-11-17 18:09 | REP ---
ABDOMINAL SERIES: Supine and erect views of the abdomen and pelvis demonstrate no evidence of free intraperitoneal air and no compelling evidence for obstruction. Metallic clips are seen in the upper abdomen. No abnormal calcifications are seen. An accompanying view of the chest demonstrates no acute infiltrate. Heart is normal in size. The mediastinal silhouette is unremarkable. IMPRESSION: No free air or obstruction. Lungs are clear. Signed by Lamberto Palacios MD 11/18/2017 08:26 P
--- NOTE | 2017-11-17 18:54 | REP ---
CT ABDOMEN WITH IV CONTRAST: CT abdomen was performed with administration of oral contrast as well as the intravenous administration of 100 mL of Isovue-370. Saggital and coronal reconstruction images are performed. Comparison is made with prior studies from March 2017. Visualized lung bases are free of infiltrate. Patient has had prior gastric bypass surgery. There is no free air, free fluid or fluid collection in the abdomen. No bowel wall thickening is seen. The liver is unremarkable in appearance and unchanged. The gallbladder is unremarkable. There is again dilatation of the common bile duct up to 11 mm, unchanged since prior studies. Spleen, adrenals, pancreas, and kidneys are unremarkable. There is an extrarenal pelvis bilaterally. Abdominal aorta is normal in caliber with no aneurysm. There is no adenopathy. IMPRESSION: No acute abnormalities. No free air or free fluid. The patient is status-post gastric bypass surgery. A prominent common bile duct is unchanged since prior studies with a maximum diameter of 11 mm. Signed by Lamberto Palacios MD 11/18/2017 08:28 P
--- NOTE | 2017-11-17 19:31 | ECGEPIP ---
Stationary ECG Study [facility] - ED Test Date: 2017-11-17 Pat Name: JODY GILLESPIE Department: Room: - Gender: F Vp Strategic Planning: NADYA : 1985 Requested By: Jody De La Vega Order Number: [id number] Reading MD: Ashok Linn Measurements Intervals [place] Rate: 52 P: 47 IN: 152 QRS: 54 QRSD: 90 T: 45 QT: 450 QTc: 422 Interpretive Statements SINUS BRADYCARDIA BENIGN EARLY REPOLARIZATION SIMILAR TO 10/27/15 Electronically Signed On 11-17-2017 19:31:08 EST by Ashok Linn
== END 2017-11-17 12:16 | disposition home or self-care (01) ==
LOC: M ED 07:02
DX: K29.70 Gastritis, unspecified, without bleeding (principal); Z98.84 Bariatric surgery status; Z79.899 Other long term (current) drug therapy; Z88.0 Allergy status to penicillin
CPT/HCPCS: 36415; 74022; 74160; 80048; 80076; 83690; 84702; 85025; 93005; 96365; 96366; 96375; 99285; J2405; Q9963; Q9967

== ENCOUNTER → 2017-12-01 | Outpatient (REF) | payer OTHER | LOC: M SFHCLERA 10:18 | DX: R10.9 Unspecified abdominal pain (principal) ==

== ENCOUNTER 2017-12-15 23:33 | Emergency (ER) | payer OTHER ==
[2017-12-16] MEDS: CYCLOBENZAPRINE 10 MG TAB PO (01:34)
[2017-12-16] MEDS: IBUPROFEN 600 MG TAB PO (01:35)
== END 2017-12-16 01:40 | disposition home or self-care (01) ==
LOC: M ED 23:33
DX: S76.312A Strain of muscle, fascia and tendon of the posterior muscle group at thigh level, left thigh, initial encounter (principal); S76.111A Strain of right quadriceps muscle, fascia and tendon, initial encounter; W00.0XXA Fall on same level due to ice and snow, initial encounter; Y92.89 Other specified places as the place of occurrence of the external cause; F43.10 Post-traumatic stress disorder, unspecified; N83.209 Unspecified ovarian cyst, unspecified side; Z98.84 Bariatric surgery status; Z88.0 Allergy status to penicillin; F17.210 Nicotine dependence, cigarettes, uncomplicated
CPT/HCPCS: 99283

== ENCOUNTER 2018-03-18 14:37 | Emergency (ER) | payer OTHER ==
[2018-03-18] MEDS: ONDANSETRON 4 MG ORAL DISINTEGRATING TAB (Q0162 PER 1MG) PO (15:35)
[2018-03-18] MEDS: ONDANSETRON 4 MG ORAL DISINTEGRATING TAB (S0181) PO (15:35)
[2018-03-18] MEDS: PERCOCET 5MG/325MG TAB PO ×2 (15:36)
== END 2018-03-18 16:10 | disposition home or self-care (01) ==
LOC: M ED 14:37
DX: S13.9XXA Sprain of joints and ligaments of unspecified parts of neck, initial encounter (principal); M54.12 Radiculopathy, cervical region; V43.52XA Car driver injured in collision with other type car in traffic accident, initial encounter; Y92.9 Unspecified place or not applicable; Y93.9 Activity, unspecified; Y99.9 Unspecified external cause status; Z79.899 Other long term (current) drug therapy; Z88.0 Allergy status to penicillin
CPT/HCPCS: 72125; Q0162

== ENCOUNTER → 2018-04-01 | Outpatient (CLI) | payer OTHER | LOC: M LRY 16:06 | DX: R07.9 Chest pain, unspecified (principal) | CPT/HCPCS: 71046 ==

== ENCOUNTER → 2018-04-01 | Outpatient (REF) | payer OTHER ==
[2018-04-01 17:29] LABS: BASO % 0.7 % (0.0-1.0); EOS # 0.3 10^3/uL (0.0-0.50); HEMATOCRIT 40.3 % (36.0-47.0); HEMOGLOBIN 13.2 g/dl (12.0-15.5); LYMPH # 2.7 10^3/uL (1.5-4.5); LYMPH % 43.7 % (24.0-44.0); MEAN CORPUSCULAR HEMOGLOBIN 27.9 pg (27.0-33.0); MEAN CORPUSCULAR HGB CONC 32.8 g/dl (32.0-36.5); MEAN CORPUSCULAR VOLUME 85.2 fl (80.0-96.0); MONO # 0.5 10^3/uL (0.0-0.8); MONO % 8.7 % (0.0-5.0); NEUTROPHILS # 2.5 10^3/uL (1.8-7.7); NEUTROPHILS % 41.9 % (36.0-66.0); PLATELET COUNT, AUTOMATED 269 10^3/uL (150-450); RED BLOOD COUNT 4.73 10^6/uL (4.00-5.40); RED CELL DISTRIBUTION WIDTH 16.4 % (11.5-14.5); WHITE BLOOD COUNT 6.1 10^3/uL (4.0-10.0)
[2018-04-01 17:41] LABS: D-DIMER QUANT 342.2 ng/ml (<500)
[2018-04-01 17:51] LABS: ALBUMIN 4.3 GM/DL (3.2-5.2); ALBUMIN/GLOBULIN RATIO 1.02 (1.00-1.93); ALKALINE PHOSPHATASE 106 U/L (45-117); ALT/SGPT 25 U/L (12-78); ANION GAP 7 MEQ/L (8-16); AST/SGOT 17 U/L (7-37); BILIRUBIN,TOTAL 0.3 MG/DL (0.2-1.0); BLOOD UREA NITROGEN 11 MG/DL (7-18); CALCIUM LEVEL 9.2 MG/DL (8.5-10.1); CARBON DIOXIDE LEVEL 28 MEQ/L (21-32); CHLORIDE LEVEL 103 MEQ/L (98-107); GLOMERULAR FILTRATION RATE > 60.0 (>60); GLUCOSE, FASTING 76 MG/DL (70-100); POTASSIUM SERUM 4.2 MEQ/L (3.5-5.1); SODIUM LEVEL 138 MEQ/L (136-145); TOTAL PROTEIN 8.5 GM/DL (6.4-8.2); TROPONIN I < 0.02 NG/ML (< 0.10)
== END ==
LOC: M SFHCLERA 15:56
DX: R07.9 Chest pain, unspecified (principal)

== ENCOUNTER 2018-06-17 07:19 | Emergency (ER) | payer MEDICAID, SELFPAY, OTHER | END 2018-06-17 09:12 | disposition home or self-care (01) | LOC: M ED 07:19 | DX: S82.832A Other fracture of upper and lower end of left fibula, initial encounter for closed fracture (principal); X50.9XXA Other and unspecified overexertion or strenuous movements or postures, initial encounter; Y92.018 Other place in single-family (private) house as the place of occurrence of the external cause; F41.9 Anxiety disorder, unspecified; F33.9 Major depressive disorder, recurrent, unspecified; F43.10 Post-traumatic stress disorder, unspecified; K27.9 Peptic ulcer, site unspecified, unspecified as acute or chronic, without hemorrhage or perforation; Z87.442 Personal history of urinary calculi; J30.2 Other seasonal allergic rhinitis; Z88.0 Allergy status to penicillin; F17.210 Nicotine dependence, cigarettes, uncomplicated | CPT/HCPCS: 73590 ==

== ENCOUNTER 2018-06-19 14:25 | Emergency (ER) | payer MEDICAID, SELFPAY ==
[2018-06-19] MEDS: PERCOCET 5MG/325MG TAB PO ×2 (16:30)
== END 2018-06-19 18:17 | disposition home or self-care (01) ==
LOC: M ED 14:25
DX: S82.832D Other fracture of upper and lower end of left fibula, subsequent encounter for closed fracture with routine healing (principal); X58.XXXD Exposure to other specified factors, subsequent encounter; Y92.89 Other specified places as the place of occurrence of the external cause; F41.9 Anxiety disorder, unspecified; F33.9 Major depressive disorder, recurrent, unspecified; F43.10 Post-traumatic stress disorder, unspecified; K27.9 Peptic ulcer, site unspecified, unspecified as acute or chronic, without hemorrhage or perforation; Z87.442 Personal history of urinary calculi; Z98.84 Bariatric surgery status; J30.2 Other seasonal allergic rhinitis; Z88.0 Allergy status to penicillin; F17.210 Nicotine dependence, cigarettes, uncomplicated
CPT/HCPCS: 73610

== ENCOUNTER 2018-07-18 08:22 | Emergency (ER) | payer MEDICAID, SELFPAY ==
[2018-07-18 09:31] LABS: BASO % 0.5 % (0.0-1.0); EOS # 0.2 10^3/uL (0.0-0.50); EOS % 3.4 % (0.0-3.0); HEMOGLOBIN 12.3 g/dl (12.0-15.5); IMMATURE GRANULOCYTE % 0.2 % (0-3.0); LYMPH # 1.9 10^3/uL (1.5-4.5); LYMPH % 33.7 % (24.0-44.0); MEAN CORPUSCULAR HEMOGLOBIN 29.4 pg (27.0-33.0); MEAN CORPUSCULAR HGB CONC 33.2 g/dl (32.0-36.5); MEAN CORPUSCULAR VOLUME 88.5 fl (80.0-96.0); MONO # 0.4 10^3/uL (0.0-0.8); MONO % 7.4 % (0.0-5.0); NEUTROPHILS % 54.8 % (36.0-66.0); PLATELET COUNT, AUTOMATED 240 10^3/uL (150-450); RED BLOOD COUNT 4.18 10^6/uL (4.00-5.40); RED CELL DISTRIBUTION WIDTH 15.7 % (11.5-14.5); WHITE BLOOD COUNT 5.6 10^3/uL (4.0-10.0)
[2018-07-18 09:34] LABS: KETONE, URINE AUTO RFX NEGATIVE (NEGATIVE); LEUKOCYTE ESTERASE UR AUTO RFX NEGATIVE (NEGATIVE); MUCUS, URINE RFX SMALL (NEGATIVE); NITRITE, URINE AUTO RFX NEGATIVE (NEGATIVE); RBC, URINE AUTO RFX 2 /HPF (0-3); SPECIFIC GRAVITY UR AUTO RFX 1.023 (1.002-1.035); SQUAM EPITHELIAL CELL UR AURFX 2 /HPF (0-6); WBC, URINE AUTO RFX 2 /HPF (0-3)
[2018-07-18] MEDS: NS 1,000 ML IV (09:38)
[2018-07-18] MEDS: ONDANSETRON 4MG/2ML VIAL (J2405) IV (09:38)
[2018-07-18] MEDS: MORPHINE 4 MG/ML 1ML VIAL/SYRINGE (J2270) IV (09:39)
[2018-07-18 09:43] LABS: CONTROL LINE HCG INT CTR LINE PRESENT; HCG, SERUM QUALITATIVE NEGATIVE (NEGATIVE)
[2018-07-18 09:50] LABS: ALBUMIN 3.6 GM/DL (3.2-5.2); ALBUMIN/GLOBULIN RATIO 0.95 (1.00-1.93); ALKALINE PHOSPHATASE 85 U/L (45-117); ALT/SGPT 21 U/L (12-78); ANION GAP 6 MEQ/L (8-16); AST/SGOT 17 U/L (7-37); BILIRUBIN,DIRECT 0.1 MG/DL (0.0-0.2); BILIRUBIN,TOTAL 0.4 MG/DL (0.2-1.0); BLOOD UREA NITROGEN 7 MG/DL (7-18); CALCIUM LEVEL 8.5 MG/DL (8.5-10.1); CARBON DIOXIDE LEVEL 28 MEQ/L (21-32); CHLORIDE LEVEL 107 MEQ/L (98-107); CREATININE FOR GFR 0.83 MG/DL (0.55-1.30); GLOMERULAR FILTRATION RATE > 60.0 (>60); GLUCOSE, FASTING 82 MG/DL (70-100); POTASSIUM SERUM 3.6 MEQ/L (3.5-5.1); SODIUM LEVEL 141 MEQ/L (136-145); TOTAL PROTEIN 7.4 GM/DL (6.4-8.2)
[2018-07-18] MEDS: KETOROLAC 30 MG/ML VIAL (J1885) IV (11:24)
[2018-07-18 13:22] LABS: CHLAMYDIA DNA AMPLIFICATION NEGATIVE (NEGATIVE); GC DNA AMPLIFICATION NEGATIVE (NEGATIVE)
== END 2018-07-18 11:58 | disposition home or self-care (01) ==
LOC: M ED 08:22
DX: N94.10 Unspecified dyspareunia (principal); F33.9 Major depressive disorder, recurrent, unspecified; F41.9 Anxiety disorder, unspecified; F17.210 Nicotine dependence, cigarettes, uncomplicated; Z87.42 Personal history of other diseases of the female genital tract; Z87.442 Personal history of urinary calculi; Z96.0 Presence of urogenital implants; Z98.890 Other specified postprocedural states; Z88.0 Allergy status to penicillin; Z79.899 Other long term (current) drug therapy
CPT/HCPCS: J2270

== ENCOUNTER 2018-08-18 12:05 | Emergency (ER) | payer MEDICAID ==
[2018-08-18 13:00] LABS: KETONE, URINE AUTO RFX NEGATIVE (NEGATIVE); MUCUS, URINE RFX SMALL (NEGATIVE); NITRITE, URINE AUTO RFX NEGATIVE (NEGATIVE); RBC, URINE AUTO RFX 2 /HPF (0-3); SPECIFIC GRAVITY UR AUTO RFX 1.021 (1.002-1.035); SQUAM EPITHELIAL CELL UR AURFX 4 /HPF (0-6); WBC, URINE AUTO RFX 3 /HPF (0-3)
[2018-08-18 13:01] LABS: LEUKOCYTE ESTERASE UR AUTO RFX TRACE (NEGATIVE)
[2018-08-18 15:01] LABS: BASO % 0.3 % (0.0-1.0); EOS # 0.3 10^3/uL (0.0-0.50); EOS % 4.3 % (0.0-3.0); HEMATOCRIT 38.7 % (36.0-47.0); HEMOGLOBIN 12.5 g/dl (12.0-15.5); IMMATURE GRANULOCYTE % 0.3 % (0-3.0); LYMPH # 2.1 10^3/uL (1.5-4.5); LYMPH % 33.8 % (24.0-44.0); MEAN CORPUSCULAR HEMOGLOBIN 29.3 pg (27.0-33.0); MEAN CORPUSCULAR HGB CONC 32.3 g/dl (32.0-36.5); MEAN CORPUSCULAR VOLUME 90.6 fl (80.0-96.0); MONO # 0.3 10^3/uL (0.0-0.8); MONO % 4.9 % (0.0-5.0); NEUTROPHILS # 3.6 10^3/uL (1.8-7.7); NEUTROPHILS % 56.4 % (36.0-66.0); PLATELET COUNT, AUTOMATED 266 10^3/uL (150-450); RED BLOOD COUNT 4.27 10^6/uL (4.00-5.40); WHITE BLOOD COUNT 6.3 10^3/uL (4.0-10.0)
[2018-08-18 15:20] LABS: CONTROL LINE HCG INT CTR LINE PRESENT; HCG, SERUM QUALITATIVE NEGATIVE (NEGATIVE)
[2018-08-18 15:24] LABS: ANION GAP 9 MEQ/L (8-16); BLOOD UREA NITROGEN 8 MG/DL (7-18); CALCIUM LEVEL 8.8 MG/DL (8.5-10.1); CARBON DIOXIDE LEVEL 25 MEQ/L (21-32); CHLORIDE LEVEL 107 MEQ/L (98-107); CREATININE FOR GFR 0.78 MG/DL (0.55-1.30); GLOMERULAR FILTRATION RATE > 60.0 (>60); GLUCOSE, FASTING 81 MG/DL (70-100); POTASSIUM SERUM 4.3 MEQ/L (3.5-5.1); SODIUM LEVEL 141 MEQ/L (136-145)
[2018-08-18] MEDS: ONDANSETRON 4 MG ORAL DISINTEGRATING TAB (Q0162 PER 1MG) PO (16:08)
[2018-08-18] MEDS: NORCO, ANEXSIA 5/325MG TABLET (HYDROcodone/ACETAMINOPHEN) PO (16:08)
== END 2018-08-18 17:59 | disposition home or self-care (01) ==
LOC: M ED 12:05
DX: N83.01 Follicular cyst of right ovary (principal); Z87.42 Personal history of other diseases of the female genital tract; K21.9 Gastro-esophageal reflux disease without esophagitis; Z98.84 Bariatric surgery status; F17.200 Nicotine dependence, unspecified, uncomplicated; Z88.0 Allergy status to penicillin; Z79.899 Other long term (current) drug therapy
CPT/HCPCS: Q0162

== ENCOUNTER 2018-09-15 14:02 | Emergency (ER) | payer OTHER, MEDICAID | END 2018-09-15 15:23 | disposition home or self-care (01) | LOC: M ED 14:02 | DX: J06.9 Acute upper respiratory infection, unspecified (principal); F17.200 Nicotine dependence, unspecified, uncomplicated; Z88.0 Allergy status to penicillin; Z79.899 Other long term (current) drug therapy | CPT/HCPCS: 87880 ==

== ENCOUNTER 2018-10-13 18:07 | Emergency (ER) | payer OTHER ==
[2018-10-13] MEDS: KETOROLAC 60 MG/2 ML VIAL (J1885) IM (20:21)
[2018-10-13] MEDS: NORCO, ANEXSIA 5/325MG TABLET (HYDROcodone/ACETAMINOPHEN) PO (21:42)
[2018-10-13] MEDS: tiZANidine 4 MG TAB PO (21:42)
== END 2018-10-13 23:16 | disposition home or self-care (01) ==
LOC: M ED 18:07
DX: S39.012A Strain of muscle, fascia and tendon of lower back, initial encounter (principal); W10.9XXA Fall (on) (from) unspecified stairs and steps, initial encounter; Y92.9 Unspecified place or not applicable; Y93.9 Activity, unspecified; Y99.0 Civilian activity done for income or pay; M51.26 Other intervertebral disc displacement, lumbar region; R51 Headache; Z98.84 Bariatric surgery status; Z87.442 Personal history of urinary calculi; I73.9 Peripheral vascular disease, unspecified; Z72.0 Tobacco use; Z79.899 Other long term (current) drug therapy; Z88.0 Allergy status to penicillin
CPT/HCPCS: J1885

== ENCOUNTER 2018-10-29 02:18 | Emergency (ER) | payer OTHER ==
[~2018-10-29] VITALS: Ht 165.1 cm; Wt 68.2 kg
[2018-10-29 02:18] VITALS: BP 120/76
[~2018-10-29 02:18] MED LIST changes: +ALPR0.5T3 PO; +BENZ-18 PO; -BENZ100C5 PO; +CYCL10TA PO; +HYDR-3363 PO; +MAPA500T17 PO; +NAPR-49 PO; +NAPR-885 PO; -NAPR500T PO; -NAPR500T3 PO; +NORCOTAB PO; -PANT40TA2 PO; +PANT40TA3 PO; +PEPC1TAB5 PO; +PERC5TAB12 PO; +PROT20TA11 PO; +SUCR1SS PO; +TRAM50TA2 PO; +VENL150C43; +VENL150C43 PO; +ZANA4TAB PO
[2018-10-29] MEDS ORDERED: DERMABOND TOPICAL SKIN ADHESIVE TOP ONE (04:30)
== END 2018-10-29 04:46 | disposition home or self-care (01) ==
LOC: M ED 02:18
DX: S61.411A Laceration without foreign body of right hand, initial encounter (principal); W25.XXXA Contact with sharp glass, initial encounter; Y92.89 Other specified places as the place of occurrence of the external cause; F17.200 Nicotine dependence, unspecified, uncomplicated; Z88.0 Allergy status to penicillin

== ENCOUNTER 2018-12-21 15:38 | Emergency (ER) | payer OTHER ==
[~2018-12-21] VITALS: Ht 165.1 cm; Wt 72.7 kg
[~2018-12-21 15:38] MED LIST changes: -MAPA500T17 PO; +MAPA500T2 PO; -NAPR-49 PO; +NAPR-50 PO
[2018-12-21 16:17] VITALS: BP 114/70
[2018-12-21 16:58] LABS: BASO % 0.4 % (0.0-1.0); EOS % 0.2 % (0.0-3.0); HEMATOCRIT 38.7 % (36.0-47.0); HEMOGLOBIN 12.7 g/dl (12.0-15.5); LYMPH # 1.9 10^3/uL (1.5-4.5); LYMPH % 37.2 % (24.0-44.0); MEAN CORPUSCULAR HEMOGLOBIN 28.7 pg (27.0-33.0); MEAN CORPUSCULAR HGB CONC 32.8 g/dl (32.0-36.5); MEAN CORPUSCULAR VOLUME 87.4 fl (80.0-96.0); MONO # 0.3 10^3/uL (0.0-0.8); MONO % 6.2 % (0.0-5.0); NEUTROPHILS # 2.9 10^3/uL (1.8-7.7); NEUTROPHILS % 55.8 % (36.0-66.0); PLATELET COUNT, AUTOMATED 265 10^3/uL (150-450); RED BLOOD COUNT 4.43 10^6/uL (4.00-5.40); WHITE BLOOD COUNT 5.1 10^3/uL (4.0-10.0)
[2018-12-21 17:15] LABS: BLOOD UREA NITROGEN 9 MG/DL (7-18); CALCIUM LEVEL 8.3 MG/DL (8.5-10.1); CARBON DIOXIDE LEVEL 25 MEQ/L (21-32); CHLORIDE LEVEL 109 MEQ/L (98-107); CREATININE FOR GFR 0.69 MG/DL (0.55-1.30); GLOMERULAR FILTRATION RATE > 60.0 (>60); GLUCOSE, FASTING 81 MG/DL (70-100); POTASSIUM SERUM 4.3 MEQ/L (3.5-5.1); SODIUM LEVEL 139 MEQ/L (136-145)
[2018-12-21] MEDS ORDERED: ONDANSETRON 4MG/2ML VIAL (J2405) IV ONE (18:00)
[2018-12-21] MEDS ORDERED: NS 1,000 ML IV ONE (18:00)
[2018-12-21] MEDS ORDERED: KETOROLAC 30 MG/ML VIAL (J1885) IV ONE (18:00)
--- NOTE | 2018-12-21 19:00 | REPVR ---
EXAM: US Pelvis Complete, Transabdominal and US Pelvis, Transvaginal EXAM DATE/TIME: 12/21/2018 6:28 PM CLINICAL HISTORY: 33 years old, female; Pain; Pelvic pain; Additional info: Rlq pain/hx ovarian cysts TECHNIQUE: Real-time transabdominal and transvaginal pelvic ultrasound (complete) with image documentation. Transvaginal imaging was used for better evaluation of the endometrium and adnexa. COMPARISON: US PELVIC NON-OB COMPLETE 08/18/2018 4:42 PM FINDINGS: Uterus/cervix: Uterus measures 7.3 x 4 x 5.6 cm. Mild coarsening of the echotexture of the uterus can be seen in association with adenomyosis uteri the appropriate clinical setting. Furthermore an expanded contour of the uterine fundus favors adenomyosis. Endometrial echocomplex measures 7.3 mm. Right adnexa: Right ovary measures 3.1 x 2 x 2.6 cm. Left adnexa: Left ovary measures 2.6 x 2.1 x 2 cm. Free fluid: None. Bladder: Normal. IMPRESSION: Possible adenomyosis uteri. If further evaluation is desired correlation with pelvic MRI is suggested. Electronically signed by: West Manzo On 12/21/2018 18:59:55 PM
[2018-12-21] MEDS ORDERED: MORPHINE 4 MG/ML 1ML VIAL/SYRINGE (J2270) IV ONE (19:45)
[2018-12-21] MEDS ORDERED: PERCOCET 5MG/325MG TAB PO ONE (21:30)
[2018-12-21] MEDS ORDERED: CIPR-249 PO (21:54)
[2018-12-21] MEDS ORDERED: FLAG500T PO (21:54)
[2018-12-21] MEDS ORDERED: NORCOTAB PO (21:54)
[2018-12-21] MEDS ORDERED: CIPROFLOXACIN 500 MG TAB PO ONE (22:00)
[2018-12-21] MEDS ORDERED: metroNIDAZOLE (FLAGYL) 500 MG TAB PO ONE (22:00)
[2018-12-21 22:49] LABS: CHLAMYDIA DNA AMPLIFICATION NEGATIVE (NEGATIVE); GC DNA AMPLIFICATION NEGATIVE (NEGATIVE)
--- NOTE | 2018-12-25 11:23 | ED PDOC ---
Post-Departure Follow-Up dr meraz faxed formal report of pelvic us for fu mgl Holger Amaya MD Dec 25, 2018 11:23
== END 2018-12-21 22:08 | disposition home or self-care (01) ==
LOC: M ED 15:38
DX: N93.8 Other specified abnormal uterine and vaginal bleeding (principal); R10.2 Pelvic and perineal pain; N76.0 Acute vaginitis; B96.89 Other specified bacterial agents as the cause of diseases classified elsewhere
CPT/HCPCS: 76830; 76856; 80048; 81001; 85025; 87088; 87186; 87210; 87491; 87591; 93976; 96374; 96375; 99283; J1885; J2270; J2405

== ENCOUNTER 2019-01-25 12:32 | Emergency (ER) | payer OTHER ==
[~2019-01-25] VITALS: Ht 165.1 cm; Wt 74.5 kg
[~2019-01-25 12:32] MED LIST changes: +CIPR-249 PO; +FLAG500T PO
[2019-01-25 14:22] LABS: AMPHETAMINES LEVEL URINE NEGATIVE (NEGATIVE); BARBITURATES URINE NEGATIVE (NEGATIVE); BENZODIAZEPINES URINE NEGATIVE (NEGATIVE); CANNABINOIDS URINE NEGATIVE (NEGATIVE); COCAINE METABOLITE URINE NEGATIVE (NEGATIVE); METHADONE URINE NEGATIVE (NEGATIVE); OPIATES URINE NEGATIVE (NEGATIVE); PHENCYCLIDINE URINE NEGATIVE (NEGATIVE)
[2019-01-25 14:42] LABS: BASO % 0.3 % (0.0-1.0); EOS % 0.5 % (0.0-3.0); HEMATOCRIT 40.4 % (36.0-47.0); HEMOGLOBIN 13.2 g/dl (12.0-15.5); LYMPH # 1.3 10^3/uL (1.5-4.5); LYMPH % 17.4 % (24.0-44.0); MEAN CORPUSCULAR HEMOGLOBIN 28.4 pg (27.0-33.0); MEAN CORPUSCULAR HGB CONC 32.7 g/dl (32.0-36.5); MEAN CORPUSCULAR VOLUME 87.1 fl (80.0-96.0); MONO # 0.4 10^3/uL (0.0-0.8); NEUTROPHILS # 5.8 10^3/uL (1.8-7.7); NEUTROPHILS % 76.5 % (36.0-66.0); PLATELET COUNT, AUTOMATED 244 10^3/uL (150-450); RED BLOOD COUNT 4.64 10^6/uL (4.00-5.40); WHITE BLOOD COUNT 7.6 10^3/uL (4.0-10.0)
[2019-01-25 15:19] LABS: ALBUMIN 3.7 GM/DL (3.2-5.2); ALT/SGPT 19 U/L (12-78); BILIRUBIN,DIRECT 0.1 MG/DL (0.0-0.2); BILIRUBIN,TOTAL 0.4 MG/DL (0.2-1.0); BLOOD UREA NITROGEN 8 MG/DL (7-18); CALCIUM LEVEL 8.5 MG/DL (8.5-10.1); CARBON DIOXIDE LEVEL 26 MEQ/L (21-32); CHLORIDE LEVEL 105 MEQ/L (98-107); CK-MB VALUE MASS < 1.0 NG/ML (<3.6); CPK CREATINE PHOSPHOKINASE 56 U/L (26-192); CREATININE FOR GFR 0.74 MG/DL (0.55-1.30); GLOMERULAR FILTRATION RATE > 60.0 (>60); GLUCOSE, FASTING 78 MG/DL (70-100); MB/CK RELATIVE INDEX 1.79 (< OR =4); POTASSIUM SERUM 3.4 MEQ/L (3.5-5.1); SODIUM LEVEL 138 MEQ/L (136-145); TOTAL PROTEIN 7.6 GM/DL (6.4-8.2); TROPONIN I < 0.02 NG/ML (< 0.10)
[2019-01-25 15:54] VITALS: BP 131/85
--- NOTE | 2019-01-25 21:05 | ECGEPIP ---
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
== END 2019-01-25 16:28 | disposition home or self-care (01) ==
LOC: M ED 12:32
DX: F41.9 Anxiety disorder, unspecified (principal); Z98.84 Bariatric surgery status; Z79.899 Other long term (current) drug therapy; Z88.0 Allergy status to penicillin; F17.210 Nicotine dependence, cigarettes, uncomplicated

== ENCOUNTER 2019-01-27 19:04 | Emergency (ER) | payer OTHER ==
[~2019-01-27] VITALS: Ht 165.1 cm; Wt 75.0 kg
[2019-01-27] MEDS ORDERED: chlorproMAZINE 25 MG TAB (Q0161) PO ONE (20:15)
[2019-01-27 20:42] VITALS: BP 114/75
[2019-01-28] MEDS ORDERED: ATIV1TAB7 PO (12:48)
== END 2019-01-27 20:39 | disposition home or self-care (01) ==
LOC: M ED 19:04
DX: F41.1 Generalized anxiety disorder (principal); K21.9 Gastro-esophageal reflux disease without esophagitis; Z98.84 Bariatric surgery status; Z79.899 Other long term (current) drug therapy; Z88.0 Allergy status to penicillin; F17.210 Nicotine dependence, cigarettes, uncomplicated
CPT/HCPCS: 99284; Q0161

== ENCOUNTER 2019-01-28 11:21 | Emergency (ER) | payer OTHER ==
[~2019-01-28] VITALS: Ht 165.1 cm; Wt 75.0 kg
[2019-01-28] MEDS ORDERED: ATIV1TAB7 PO (12:48)
[2019-01-28 13:08] VITALS: BP 111/75
== END 2019-01-28 13:11 | disposition home or self-care (01) ==
LOC: M ED 11:21
DX: F41.0 Panic disorder [episodic paroxysmal anxiety] (principal); Z98.84 Bariatric surgery status; Z88.0 Allergy status to penicillin

== ENCOUNTER 2019-02-02 07:59 | Emergency (ER) | payer OTHER ==
[~2019-02-02] VITALS: Ht 165.1 cm; Wt 75.0 kg
[~2019-02-02 07:59] MED LIST changes: +ATIV1TAB7 PO
[2019-02-02] MEDS ORDERED: PANTOPRAZOLE 40MG INJ (PROTONIX) (C9113) IV ONE (08:45)
[2019-02-02 08:52] LABS: BASO % 0.4 % (0.0-1.0); EOS # 0.1 10^3/uL (0.0-0.50); EOS % 1.4 % (0.0-3.0); HEMOGLOBIN 13.1 g/dl (12.0-15.5); LYMPH # 1.7 10^3/uL (1.5-4.5); LYMPH % 29.2 % (24.0-44.0); MEAN CORPUSCULAR HEMOGLOBIN 28.5 pg (27.0-33.0); MEAN CORPUSCULAR VOLUME 89.1 fl (80.0-96.0); MONO # 0.6 10^3/uL (0.0-0.8); MONO % 9.6 % (0.0-5.0); NEUTROPHILS # 3.4 10^3/uL (1.8-7.7); PLATELET COUNT, AUTOMATED 221 10^3/uL (150-450); WHITE BLOOD COUNT 5.7 10^3/uL (4.0-10.0)
[2019-02-02 09:09] LABS: APPEARANCE, URINE CLOUDY (CLEAR); BACTERIA, URINE AUTO NEGATIVE (NEGATIVE); BILIRUBIN, URINE AUTO NEGATIVE (NEGATIVE); BLOOD, URINE BLOOD NEGATIVE (NEGATIVE); COLOR, URINE YELLOW (YELLOW); GLUCOSE, URINE (UA) AUTO NEGATIVE (NEGATIVE); KETONE, URINE AUTO NEGATIVE (NEGATIVE); LEUKOCYTE ESTERASE, URINE AUTO NEGATIVE (NEGATIVE); MUCUS, URINE SMALL (NEGATIVE); NITRITE, URINE AUTO NEGATIVE (NEGATIVE); PROTEIN, URINE AUTO NEGATIVE (NEGATIVE); RBC, URINE AUTO 1 /HPF (0-3); SPECIFIC GRAVITY URINE AUTO 1.017 (1.002-1.035); SQUAMOUS EPITHELIAL CELL UR AU 16 /HPF (0-6); WBC, URINE AUTO 0 /HPF (0-3)
--- NOTE | 2019-02-02 09:15 | REP ---
CT ABDOMEN AND PELVIS WITHOUT CONTRAST: CT abdomen and pelvis performed without oral or IV contrast. Sagittal and coronal reconstruction images are performed. Visualized lung bases demonstrates no infiltrate. Liver is grossly unremarkable. A few small gallstones are seen in the gallbladder. There is no definite biliary dilatation of gallbladder wall edema. The spleen, adrenals, and pancreas are grossly unremarkable. There is no hydronephrosis or hydroureter bilaterally. Extrarenal pelvis is noted on the right unchanged since prior CT of 11/17/2017. There is a 3 mm calculus in the lower pole of the right kidney. There is no abdominal aortic aneurysm. There is no adenopathy. There is no free air or free fluid. No bowel wall thickening is seen. Patient has had prior gastric surgery. There is no appendicitis. In the pelvis there appears to be a small cyst of the right ovary measuring approximately 2.4 cm in diameter. There is mild to moderate free fluid in the cul-de-sac. Urinary bladder is minimally distended with no gross calculus. IMPRESSION: There is a 3 mm calculus in the lower pole of the right kidney. No hydroureteronephrosis. Extrarenal pelvis right kidney. Small gallstones in the gallbladder without definite gallbladder wall edema or biliary dilatation. Cystic structure right ovary 2.4 cm with mild to moderate free fluid in the pelvis. Electronically Signed by Lamberto Palacios MD 02/02/2019 04:58 P
[2019-02-02 09:19] LABS: ALT/SGPT 25 U/L (12-78); BILIRUBIN,DIRECT 0.1 MG/DL (0.0-0.2); BILIRUBIN,TOTAL 0.3 MG/DL (0.2-1.0); BLOOD UREA NITROGEN 9 MG/DL (7-18); CALCIUM LEVEL 8.5 MG/DL (8.5-10.1); CARBON DIOXIDE LEVEL 26 MEQ/L (21-32); CHLORIDE LEVEL 104 MEQ/L (98-107); CREATININE FOR GFR 0.76 MG/DL (0.55-1.30); GLOMERULAR FILTRATION RATE > 60.0 (>60); GLUCOSE, FASTING 81 MG/DL (70-100); LIPASE 189 U/L (73-393); POTASSIUM SERUM 3.6 MEQ/L (3.5-5.1); SODIUM LEVEL 139 MEQ/L (136-145); TOTAL PROTEIN 7.7 GM/DL (6.4-8.2)
[2019-02-02] MEDS ORDERED: ONDA4TAB6 PO (10:00)
[2019-02-02] MEDS ORDERED: GI COCKTAIL 50ML BTL(HYOSCYAMINE/MAALOX/LIDOCAINE VISCOUS)(1:3:1) PO ONE (10:00)
[2019-02-02] MEDS ORDERED: PROT1TAB2 PO (10:00)
[2019-02-02 10:14] VITALS: BP 118/85
== END 2019-02-02 10:36 | disposition home or self-care (01) ==
LOC: M ED 07:59
DX: K29.70 Gastritis, unspecified, without bleeding (principal); R10.13 Epigastric pain; K80.20 Calculus of gallbladder without cholecystitis without obstruction; N20.0 Calculus of kidney; N83.201 Unspecified ovarian cyst, right side; F41.9 Anxiety disorder, unspecified; Z98.84 Bariatric surgery status; F17.200 Nicotine dependence, unspecified, uncomplicated; Z88.0 Allergy status to penicillin
CPT/HCPCS: 74176; 80048; 80076; 81001; 83690; 85025; 96374; 99283; C9113

== ENCOUNTER 2019-02-24 16:31 | Emergency (ER) | payer MEDICAID, OTHER ==
[~2019-02-24] VITALS: Ht 165.1 cm; Wt 69.3 kg
[~2019-02-24 16:31] MED LIST changes: +ACET-716 PO; -ACET30TAB PO; +HYDR-3715 PO; -NAPR-50 PO; +NAPR-837 PO; -NORCOTAB PO; +PROT1TAB2 PO
[2019-02-24] MEDS ORDERED: ESCI20TA PO (17:11)
[2019-02-24] MEDS ORDERED: NS 1,000 ML IV ONE (17:45)
[2019-02-24] MEDS ORDERED: ALBUTEROL SULFATE 2.5 MG/0.5 ML INH NEB SOLN NEB ONE (18:15)
[2019-02-24 18:17] LABS: BASO % 0.5 % (0.0-1.0); EOS # 0.1 10^3/uL (0.0-0.50); EOS % 1.4 % (0.0-3.0); HEMATOCRIT 41.5 % (36.0-47.0); HEMOGLOBIN 13.8 g/dl (12.0-15.5); LYMPH # 1.8 10^3/uL (1.5-4.5); MEAN CORPUSCULAR HEMOGLOBIN 29.1 pg (27.0-33.0); MEAN CORPUSCULAR HGB CONC 33.3 g/dl (32.0-36.5); MEAN CORPUSCULAR VOLUME 87.6 fl (80.0-96.0); MONO # 0.4 10^3/uL (0.0-0.8); MONO % 6.3 % (0.0-5.0); NEUTROPHILS # 3.9 10^3/uL (1.8-7.7); NEUTROPHILS % 62.5 % (36.0-66.0); PLATELET COUNT, AUTOMATED 261 10^3/uL (150-450); RED BLOOD COUNT 4.74 10^6/uL (4.00-5.40); WHITE BLOOD COUNT 6.2 10^3/uL (4.0-10.0)
[2019-02-24 18:45] LABS: BLOOD UREA NITROGEN 8 MG/DL (7-18); CALCIUM LEVEL 8.8 MG/DL (8.5-10.1); CARBON DIOXIDE LEVEL 25 MEQ/L (21-32); CHLORIDE LEVEL 105 MEQ/L (98-107); CREATININE FOR GFR 0.85 MG/DL (0.55-1.30); GLOMERULAR FILTRATION RATE > 60.0 (>60); GLUCOSE, FASTING 80 MG/DL (70-100); POTASSIUM SERUM 4.3 MEQ/L (3.5-5.1); SODIUM LEVEL 140 MEQ/L (136-145)
[2019-02-24] MEDS ORDERED: PROAAER10 INH (18:58)
[2019-02-24] MEDS ORDERED: IBUPROFEN 600 MG TAB PO ONE (19:00)
[2019-02-24 19:08] VITALS: BP 125/65
--- NOTE | 2019-02-24 19:52 | ECGEPIP ---
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
[2019-03-01] MEDS ORDERED: MELA3TAB PO (14:07)
[2019-03-01] MEDS ORDERED: BENA25CA4 PO (14:07)
== END 2019-02-24 19:12 | disposition home or self-care (01) ==
LOC: M ED 16:31
DX: F41.1 Generalized anxiety disorder (principal); G44.209 Tension-type headache, unspecified, not intractable; R42 Dizziness and giddiness; R06.2 Wheezing; Z87.442 Personal history of urinary calculi; G43.909 Migraine, unspecified, not intractable, without status migrainosus; Z98.84 Bariatric surgery status; Z72.0 Tobacco use; Z79.899 Other long term (current) drug therapy; Z88.0 Allergy status to penicillin

== ENCOUNTER 2019-03-10 07:09 | Day surgery (SDC) | payer OTHER ==
[2019-03-10] VITALS (7 sets, daily range): BP systolic 106–122; BP diastolic 54–75
[~2019-03-10] VITALS: Ht 165.1 cm; Wt 70.3 kg
[~2019-03-10 07:09] MED LIST changes: +ESCI20TA PO; +MELA3TAB PO; +PROAAER10 INH
[2019-03-10 07:34] LABS: HEMATOCRIT 39.6 % (36.0-47.0); HEMOGLOBIN 13.2 g/dl (12.0-15.5); MEAN CORPUSCULAR HEMOGLOBIN 29.1 pg (27.0-33.0); MEAN CORPUSCULAR HGB CONC 33.3 g/dl (32.0-36.5); MEAN CORPUSCULAR VOLUME 87.4 fl (80.0-96.0); PLATELET COUNT, AUTOMATED 225 10^3/uL (150-450); RED BLOOD COUNT 4.53 10^6/uL (4.00-5.40); WHITE BLOOD COUNT 5.5 10^3/uL (4.0-10.0)
[2019-03-10] MEDS ORDERED: ceFAZolin 2 GM/D5W 50 ML IV BAG (J0690 PER 500MG) As Ordered ONE (08:11)
[2019-03-10] MEDS: DOCUSATE SODIUM 100 MG CAP PO SCH ×2 (09:00→20:31)
[2019-03-10] MEDS ORDERED: PROPOFOL 200 MG/20 ML VIAL As Ordered ONE (09:05)
[2019-03-10] MEDS ORDERED: LIDOCAINE 2% INJ 100 MG/5 ML SDV (FOR ANES.) As Ordered ONE (09:05)
[2019-03-10] MEDS ORDERED: ROCURONIUM BROMIDE 50 MG/5 ML VIAL As Ordered ONE (09:06)
[2019-03-10] MEDS ORDERED: ONDANSETRON 4MG/2ML VIAL (J2405) As Ordered ONE ×2 (09:08→11:24)
[2019-03-10] MEDS ORDERED: dexameTHASONE 4 MG/ML 1ML VIAL (J1100) As Ordered ONE (09:08)
[2019-03-10] MEDS ORDERED: LR 1,000 ML IV ONE (09:15)
[2019-03-10] MEDS ORDERED: ENDO5TAB PO (09:30)
[2019-03-10] MEDS ORDERED: BUPIVACAINE HCL 0.25% 30 ML VIAL As Ordered ONE (09:32)
[2019-03-10] MEDS ORDERED: METHYLENE BLUE 0.5% (5MG/ML) 10 ML AMP (PROVAYBLUE)(Q9968 PER 1MG) As Ordered ONE (09:32)
[2019-03-10] MEDS ORDERED: IBUP-1022 PO (09:32)
[2019-03-10] MEDS ORDERED: KETOROLAC 60 MG/2 ML VIAL (J1885) As Ordered ONE (10:47)
[2019-03-10] MEDS ORDERED: fentaNYL 100 MCG/2 ML INJECTION (J3010) As Ordered ONE (11:24)
[2019-03-10] MEDS: fentaNYL 100 MCG/2 ML INJECTION (J3010) IV PRN ×4 (11:27→11:46)
[2019-03-10] MEDS: PERCOCET 5MG/325MG TAB PO PRN ×4 (11:39→20:42)
[2019-03-10] MEDS ORDERED: LR 1,000 ML IV SCH ×2 (11:45→12:00)
[2019-03-10] MEDS ORDERED: ONDANSETRON 4MG/2ML VIAL (J2405) IV PRN ×2 (11:45→12:00)
[2019-03-10] MEDS ORDERED: PERCOCET 5MG/325MG TAB PO PRN (12:00)
[2019-03-10] MEDS ORDERED: MORPHINE 4 MG/ML 1ML VIAL/SYRINGE (J2270) IV PRN (12:00)
[2019-03-10] MEDS: HYDROMORPHONE HCL 0.5 MG/ 0.5 ML SYRINGE (J1170 PER 1) IV PRN ×2 (12:11→12:18)
[2019-03-10] MEDS ORDERED: KETOROLAC 30 MG/ML VIAL (J1885) IV PRN (17:00)
--- NOTE | 2019-03-10 17:12 | RO ---
DATE OF PROCEDURE: 03/10/2019 PREPROCEDURE DIAGNOSES: Dysmenorrhea, pelvic pain. POSTPROCEDURE DIAGNOSES: Dysmenorrhea, pelvic pain. OPERATIVE PROCEDURES: Robotic assisted laparoscopic hysterectomy, cystoscopy. SURGEON: Vlad England MD COINING PRESS OPERATOR: Sujata Yung NP ANESTHESIA: General endotracheal. ESTIMATED BLOOD LOSS: 150 mL. URINE OUTPUT: 100 mL. FINDINGS: Normal uterus, fallopian tubes and ovaries. Obliteration of the endometrial cavity and prior ablation procedure. DESCRIPTION OF PROCEDURE: The patient was taken to the operating room where general endotracheal anesthesia was induced. She was prepped and draped in a sterile fashion in the dorsal lithotomy position. A speculum was placed in the vagina. A Sanchez catheter was placed. The PopUpstersare uterine manipulator was placed. A periumbilical incision was made with a scalpel. A Veress needle was placed through this incision while tenting up on the skin of the abdomen. Intraabdominal location of the Veress needle was assessed with the use of saline filled syringe. A pneumoperitoneum was created. The Veress needle was removed. An 8 mm trocar using Xmybox was inserted through this incision. Three 8 mm suprapubic ports were placed under direct visualization. The patient was placed in Trendelenburg position. The Da Pipe surgical robot was docked to the ports. Using the fenestrated bipolar device and the Vessel Sealer, the uteroovarian ligaments, fallopian tubes and round ligaments were coagulated and incised bilaterally. The anterior and posterior leaves of the broad ligament were bilaterally. A bladder flap was created. The uterine vessels were coagulated and incised. Using the monopolar Endo Elmer a colpotomy was created at the level of the VCare cup in the upper vagina. This was extended circumferentially around the upper vagina. Specimens including the uterus and cervix was removed through the vagina. The vaginal cuff was closed with #1 V-Loc suture in a running fashion. The pelvis was irrigated. Cystoscopy was performed using a 70 degrees cystoscope. The patient received methylene blue dye intravenously. Bilateral ureteral jets were identified. There was no evidence of injury to the bladder. The cystoscope was removed. The skin was closed with #4-0 Monocryl subcuticular sutures. Sponge, instrument and needle counts were correct. Sujata Yung NP assisted in all aspects of the procedure from beginning to end. She assisted with positioning the patient, insertion of the ports. She manipulated the uterus throughout the procedure and removed the specimen at the end of the procedure. She also helped close all ports and move the patient.
[2019-03-11] VITALS: BP 105/73
[2019-03-11] MEDS: PERCOCET 5MG/325MG TAB PO PRN ×2 (01:11→07:35)
[2019-03-11 04:11] VITALS: BP 99/62
[2019-03-11] MEDS: DOCUSATE SODIUM 100 MG CAP PO SCH (09:00)
== END 2019-03-11 09:56 | disposition home or self-care (01) ==
LOC: M SDC 07:09 → M PED 12:45 → M SDC 03-11 09:56
PROVIDERS: ATTEND Specialist
DX: N92.0 Excessive and frequent menstruation with regular cycle (principal); N72 Inflammatory disease of cervix uteri; N84.0 Polyp of corpus uteri; K21.9 Gastro-esophageal reflux disease without esophagitis; F41.9 Anxiety disorder, unspecified; Z88.0 Allergy status to penicillin; Z79.899 Other long term (current) drug therapy; F17.210 Nicotine dependence, cigarettes, uncomplicated
CPT/HCPCS: 36415; 58570; 85027; 86850; 86900; 86901; 88307; 96374; J0690; J1100; J1170; J1885; J2405; Q9968

== ENCOUNTER 2019-06-06 19:43 | Emergency (ER) | payer MEDICAID, OTHER ==
[~2019-06-06] VITALS: Ht 165.1 cm; Wt 70.5 kg
[~2019-06-06 19:43] MED LIST changes: +ENDO5TAB PO
[2019-06-06] MEDS ORDERED: WELLTAB38 PO (19:48)
[2019-06-06] MEDS ORDERED: XANA0.25 PO (21:58)
[2019-06-06] MEDS ORDERED: ALPRAZolam 0.25 MG TAB PO ONE (22:00)
[2019-06-06 22:22] VITALS: BP 130/75
--- NOTE | 2019-06-07 03:40 | ECGEPIP ---
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
== END 2019-06-06 22:23 | disposition home or self-care (01) ==
LOC: M ED 19:43
DX: F41.9 Anxiety disorder, unspecified (principal); Z98.84 Bariatric surgery status; Z79.899 Other long term (current) drug therapy; Z88.0 Allergy status to penicillin; F17.210 Nicotine dependence, cigarettes, uncomplicated

== ENCOUNTER 2019-06-11 19:29 | Emergency (ER) | payer OTHER, MEDICAID ==
[~2019-06-11] VITALS: Ht 165.1 cm; Wt 69.0 kg
[~2019-06-11 19:29] MED LIST changes: +WELLTAB38 PO; +XANA0.25 PO
[2019-06-11 20:48] LABS: BASO % 0.4 % (0.0-1.0); EOS # 0.2 10^3/uL (0.0-0.50); EOS % 3.9 % (0.0-3.0); HEMATOCRIT 39.7 % (36.0-47.0); HEMOGLOBIN 12.9 g/dl (12.0-15.5); LYMPH # 1.6 10^3/uL (1.5-4.5); LYMPH % 30.6 % (24.0-44.0); MEAN CORPUSCULAR HEMOGLOBIN 28.5 pg (27.0-33.0); MEAN CORPUSCULAR HGB CONC 32.5 g/dl (32.0-36.5); MEAN CORPUSCULAR VOLUME 87.8 fl (80.0-96.0); MONO # 0.3 10^3/uL (0.0-0.8); MONO % 6.3 % (0.0-5.0); NEUTROPHILS % 58.6 % (36.0-66.0); PLATELET COUNT, AUTOMATED 309 10^3/uL (150-450); RED BLOOD COUNT 4.52 10^6/uL (4.00-5.40); WHITE BLOOD COUNT 5.1 10^3/uL (4.0-10.0)
[2019-06-11] MEDS ORDERED: LORazepam 2 MG/ML VIAL (J2060) IV STA (20:58)
[2019-06-11 21:17] LABS: BLOOD UREA NITROGEN 8 MG/DL (7-18); CALCIUM LEVEL 9.1 MG/DL (8.5-10.1); CARBON DIOXIDE LEVEL 25 MEQ/L (21-32); CHLORIDE LEVEL 107 MEQ/L (98-107); CK-MB VALUE MASS < 1.0 NG/ML (<3.6); CPK CREATINE PHOSPHOKINASE 86 U/L (26-192); CREATININE FOR GFR 0.98 MG/DL (0.55-1.30); GLOMERULAR FILTRATION RATE > 60.0 (>60); GLUCOSE, FASTING 85 MG/DL (70-100); MB/CK RELATIVE INDEX 1.16 (< OR =4); POTASSIUM SERUM 4.2 MEQ/L (3.5-5.1); SODIUM LEVEL 139 MEQ/L (136-145); TROPONIN I < 0.02 NG/ML (< 0.10)
[2019-06-11] MEDS ORDERED: ONDANSETRON 4MG/2ML VIAL (J2405) IV ONE (21:30)
[2019-06-11 23:30] VITALS: BP 129/91
[2019-06-11] MEDS ORDERED: clonazePAM 0.5 MG TAB PO ONE (23:45)
--- NOTE | 2019-06-12 08:42 | REP ---
Portable chest x-ray: Single view. History: Pain. Comparison chest x-ray: April 01, 2018. Findings: EKG electrodes are seen. Lungs are well inflated and clear. There are clips in the upper abdomen bilaterally. Heart size is normal. Pulmonary vasculature is not increased. No significant bony abnormality. Impression: No acute disease. Electronically Signed by Dannie Jackson MD 06/12/2019 08:33 A
--- NOTE | 2019-06-12 20:38 | ECGEPIP ---
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
== END 2019-06-11 23:57 | disposition home or self-care (01) ==
LOC: M ED 19:29
DX: F41.1 Generalized anxiety disorder (principal); Z88.0 Allergy status to penicillin; Z79.899 Other long term (current) drug therapy
CPT/HCPCS: 71045; 80048; 82550; 82553; 85025; 85379; 93005; 93041; 94760; 96374; 96375; 99285; J2060; J2405

== ENCOUNTER 2019-06-22 13:59 | Emergency (ER) | payer OTHER, MEDICAID ==
[~2019-06-22] VITALS: Ht 165.1 cm; Wt 68.4 kg
[2019-06-22] MEDS ORDERED: BUSP15TA47 (14:05)
[2019-06-22 17:49] LABS: BASO % 0.2 % (0.0-1.0); EOS # 0.1 10^3/uL (0.0-0.50); EOS % 2.4 % (0.0-3.0); HEMATOCRIT 35.1 % (36.0-47.0); HEMOGLOBIN 11.2 g/dl (12.0-15.5); LYMPH % 36.9 % (24.0-44.0); MEAN CORPUSCULAR HEMOGLOBIN 27.3 pg (27.0-33.0); MEAN CORPUSCULAR HGB CONC 31.9 g/dl (32.0-36.5); MEAN CORPUSCULAR VOLUME 85.6 fl (80.0-96.0); MONO # 0.3 10^3/uL (0.0-0.8); MONO % 5.4 % (0.0-5.0); NEUTROPHILS % 55.1 % (36.0-66.0); PLATELET COUNT, AUTOMATED 245 10^3/uL (150-450); WHITE BLOOD COUNT 5.4 10^3/uL (4.0-10.0)
[2019-06-22 18:06] LABS: ALBUMIN 3.7 GM/DL (3.2-5.2); ALT/SGPT 25 U/L (12-78); BILIRUBIN,DIRECT 0.1 MG/DL (0.0-0.2); BILIRUBIN,TOTAL 0.3 MG/DL (0.2-1.0); BLOOD UREA NITROGEN 12 MG/DL (7-18); CALCIUM LEVEL 8.8 MG/DL (8.5-10.1); CARBON DIOXIDE LEVEL 28 MEQ/L (21-32); CHLORIDE LEVEL 107 MEQ/L (98-107); CREATININE FOR GFR 0.84 MG/DL (0.55-1.30); GLOMERULAR FILTRATION RATE > 60.0 (>60); GLUCOSE, FASTING 79 MG/DL (70-100); LIPASE 137 U/L (73-393); POTASSIUM SERUM 4.3 MEQ/L (3.5-5.1); SODIUM LEVEL 140 MEQ/L (136-145); TOTAL PROTEIN 7.1 GM/DL (6.4-8.2)
[2019-06-22] MEDS ORDERED: ONDANSETRON 4MG/2ML VIAL (J2405) IV ONE (19:30)
[2019-06-22] MEDS: MORPHINE 4 MG/ML 1ML VIAL/SYRINGE (J2270) IV PRN ×2 (19:49→20:37)
[2019-06-22] MEDS: GASTROGRAFIN SOLUTION 30ML PO SCH ×2 (19:59→20:30)
[2019-06-22] MEDS ORDERED: ISOVUE-370 76% 100ML VIAL (Q9967) As Ordered ONE (21:18)
[2019-06-22] MEDS ORDERED: HYDROMORPHONE HCL 0.5 MG/ 0.5 ML SYRINGE (J1170 PER 1) IV PRN (22:00)
--- NOTE | 2019-06-22 22:27 | REPVR ---
EXAM: CT Abdomen and Pelvis With Contrast EXAM DATE/TIME: 06/22/2019 9:25 PM CLINICAL HISTORY: 34 years old, female; Abdominal pain; Generalized; Additional info: Abd pain, HX of perf and bypass TECHNIQUE: Imaging protocol: Axial computed tomography images of the abdomen and pelvis with intravenous contrast. Coronal and sagittal reformatted images were created and reviewed. Radiation optimization: All CT scans at this facility use at least one of these dose optimization techniques: automated exposure control; mA and/or kV adjustment per patient size (includes targeted exams where dose is matched to clinical indication); or iterative reconstruction. Contrast material: ISOVUE 370;Contrast volume: 100 ml;Contrast route: IV; COMPARISON: CT ABD PELVIS W/O CONTRAST 02/02/2019 8:30 AM FINDINGS: Liver: There is a diffuse decrease in hepatic parenchymal density, consistent with fatty infiltration. Incidental perfusional abnormality left lobe liver. Gallbladder and bile ducts: There has been a cholecystectomy. Pancreas: Normal. No ductal dilation. Spleen: Normal. No splenomegaly. Adrenals: Normal. No mass. Kidneys and ureters: Punctate nonobstructive calculus lower pole right kidney. Stomach and bowel: This patient is status post gastric bypass surgery. Appendix: No evidence of appendicitis. Intraperitoneal space: Minimal free fluid in the cul-de-sac likely physiologic. Vasculature: Normal. No abdominal aortic aneurysm. Lymph nodes: Normal. No enlarged lymph nodes. Bladder: Unremarkable as visualized. Reproductive: There has been a hysterectomy. Multiple cysts left ovary measure up to 2 cm. Bones/joints: No acute fracture. No dislocation. Soft tissues: Unremarkable. IMPRESSION: 1. There is a diffuse decrease in hepatic parenchymal density, consistent with fatty infiltration. Incidental perfusional abnormality left lobe liver. 2. There has been a cholecystectomy. 3. This patient is status post gastric bypass surgery. 4. There has been a hysterectomy. Electronically signed by: West Manzo On 06/22/2019 22:27:25 PM
[2019-06-22] MEDS ORDERED: TAMSULOSIN 0.4 MG CAP PO ONE (23:30)
[2019-06-22] MEDS ORDERED: OXYCODONE/APAP 5MG/325MG(BULK FOR ED) 1 TABLET PO ONE (23:30)
[2019-06-22] MEDS ORDERED: FLOM0.4C39 PO (23:34)
[2019-06-22 23:44] VITALS: BP 122/79
== END 2019-06-22 23:58 | disposition home or self-care (01) ==
LOC: M ED 13:59
DX: N23 Unspecified renal colic (principal); N13.39 Other hydronephrosis; R00.2 Palpitations; K27.9 Peptic ulcer, site unspecified, unspecified as acute or chronic, without hemorrhage or perforation; Z87.19 Personal history of other diseases of the digestive system; Z87.442 Personal history of urinary calculi; Z98.84 Bariatric surgery status; F17.210 Nicotine dependence, cigarettes, uncomplicated; Z79.899 Other long term (current) drug therapy; Z88.0 Allergy status to penicillin
CPT/HCPCS: 74177; 80048; 80076; 81001; 83690; 85025; 96374; 96375; 96376; 99284; J1170; J2270; J2405; Q9963; Q9967

== ENCOUNTER → 2019-07-14 | Outpatient (REF) | payer OTHER, MEDICAID ==
[~2019-07-14] MED LIST changes: +BUSP15TA47; +FLOM0.4C39 PO; +ROBA750T4 PO
[2019-07-18 00:06] LABS: ANA (HEP2) Negative (.)
== END ==
LOC: M SFHCLERA 11:46
PROVIDERS: ATTEND Nurse Practitioner Family
DX: M25.50 Pain in unspecified joint (principal)

== ENCOUNTER 2019-07-17 00:21 | Emergency (ER) | payer MEDICAID, OTHER ==
[~2019-07-17] VITALS: Ht 165.1 cm; Wt 68.2 kg
[~2019-07-17 00:21] MED LIST changes: -MELA3TAB PO; +MELA3TAB63 PO; -ROBA750T4 PO
[2019-07-17 02:11] LABS: BASO % 0.2 % (0.0-1.0); EOS # 0.2 10^3/uL (0.0-0.50); EOS % 3.6 % (0.0-3.0); HEMOGLOBIN 12.4 g/dl (12.0-15.5); LYMPH % 40.8 % (24.0-44.0); MEAN CORPUSCULAR HEMOGLOBIN 28.7 pg (27.0-33.0); MEAN CORPUSCULAR HGB CONC 32.6 g/dl (32.0-36.5); MONO # 0.3 10^3/uL (0.0-0.8); NEUTROPHILS # 2.5 10^3/uL (1.8-7.7); NEUTROPHILS % 49.4 % (36.0-66.0); RED BLOOD COUNT 4.32 10^6/uL (4.00-5.40)
[2019-07-17 02:40] LABS: ALBUMIN 3.8 GM/DL (3.2-5.2); ALT/SGPT 19 U/L (12-78); BILIRUBIN,DIRECT 0.1 MG/DL (0.0-0.2); BILIRUBIN,TOTAL 0.3 MG/DL (0.2-1.0); BLOOD UREA NITROGEN 8 MG/DL (7-18); CALCIUM LEVEL 8.8 MG/DL (8.5-10.1); CARBON DIOXIDE LEVEL 27 MEQ/L (21-32); CHLORIDE LEVEL 107 MEQ/L (98-107); CREATININE FOR GFR 0.85 MG/DL (0.55-1.30); GLOMERULAR FILTRATION RATE > 60.0 (>60); GLUCOSE, FASTING 83 MG/DL (70-100); LIPASE 186 U/L (73-393); POTASSIUM SERUM 4.2 MEQ/L (3.5-5.1); SODIUM LEVEL 141 MEQ/L (136-145); TOTAL PROTEIN 7.3 GM/DL (6.4-8.2)
[2019-07-17] MEDS ORDERED: ONDANSETRON 4MG/2ML VIAL (J2405) IV ONE (05:00)
[2019-07-17] MEDS ORDERED: KETOROLAC 30 MG/ML VIAL (J1885) IV ONE (05:00)
[2019-07-17] MEDS ORDERED: LORazepam 2 MG/ML VIAL (J2060) IV STA (06:20)
--- NOTE | 2019-07-17 06:20 | REPVR ---
EXAM: CT Abdomen and Pelvis Without Contrast EXAM DATE/TIME: 07/17/2019 5:06 AM CLINICAL HISTORY: 34 years old, female; Abdominal pain; Flank; Left; Additional info: Left flank pain TECHNIQUE: Imaging protocol: Axial computed tomography images of the abdomen and pelvis without contrast. Coronal and sagittal reformatted images were created and reviewed. Radiation optimization: All CT scans at this facility use at least one of these dose optimization techniques: automated exposure control; mA and/or kV adjustment per patient size (includes targeted exams where dose is matched to clinical indication); or iterative reconstruction. COMPARISON: CT ABD/PEL W/IV ORAL CONTRAS 06/22/2019 9:24 PM FINDINGS: Liver: Normal. No mass. Gallbladder and bile ducts: Status post cholecystectomy. Pancreas: Normal. No ductal dilation. Spleen: Normal. No splenomegaly. Adrenals: Normal. No mass. Kidneys and ureters: No renal stones on the left side. Nonobstructing 3 mm stone in the lower pole of the right kidney. Stomach and bowel: Status post gastric bypass surgery. No bowel dilatation or obstruction. Appendix: There is no appendicitis. Intraperitoneal space: No acute finding. Vasculature: Unremarkable. Lymph nodes: Unremarkable. Bladder: Unremarkable. Reproductive: Status post hysterectomy. Bones/joints: No acute fracture. No dislocation. Soft tissues: Unremarkable. IMPRESSION: 3 mm nonobstructing stone in the right kidney. Left kidney is unremarkable. No acute finding. Electronically signed by: Malina Burnett On 07/17/2019 06:19:52 AM
[2019-07-17 07:19] VITALS: BP 117/74
[2019-07-17] MEDS ORDERED: ROBA750T4 PO (07:25)
== END 2019-07-17 07:35 | disposition home or self-care (01) ==
LOC: M ED 00:21
DX: R10.9 Unspecified abdominal pain (principal); N20.0 Calculus of kidney; F17.210 Nicotine dependence, cigarettes, uncomplicated; Z79.899 Other long term (current) drug therapy; Z87.442 Personal history of urinary calculi; Z88.0 Allergy status to penicillin; Z90.710 Acquired absence of both cervix and uterus; Z98.84 Bariatric surgery status
CPT/HCPCS: 36415; 74176; 80048; 80076; 81001; 83690; 84702; 85025; 96374; 96375; 99284; J1885; J2060; J2405

== ENCOUNTER 2019-07-28 00:11 | Emergency (ER) | payer OTHER ==
[~2019-07-28] VITALS: Ht 165.1 cm; Wt 68.2 kg
[~2019-07-28 00:11] MED LIST changes: +ROBA750T4 PO
[2019-07-28] MEDS ORDERED: CARISOPRODOL 350 MG TAB PO ONE (02:00)
[2019-07-28 02:45] VITALS: BP 123/58
== END 2019-07-28 02:47 | disposition home or self-care (01) ==
LOC: M ED 00:11
DX: G89.29 Other chronic pain (principal); M25.512 Pain in left shoulder; Z79.899 Other long term (current) drug therapy; F19.10 Other psychoactive substance abuse, uncomplicated; F17.210 Nicotine dependence, cigarettes, uncomplicated

== ENCOUNTER 2019-08-01 15:48 | Emergency (ER) | payer MEDICAID, OTHER ==
[~2019-08-01] VITALS: Ht 165.1 cm; Wt 68.2 kg
[2019-08-01 16:39] LABS: BASO % 0.3 % (0.0-1.0); EOS # 0.1 10^3/uL (0.0-0.5); EOS % 1.7 % (0.0-3.0); HEMATOCRIT 35.3 % (36.0-47.0); HEMOGLOBIN 11.7 g/dl (12.0-15.5); LYMPH # 1.3 10^3/uL (1.5-5.0); LYMPH % 17.4 % (24.0-44.0); MEAN CORPUSCULAR HEMOGLOBIN 28.2 pg (27.0-33.0); MEAN CORPUSCULAR HGB CONC 33.1 g/dl (32.0-36.5); MEAN CORPUSCULAR VOLUME 85.1 fl (80.0-96.0); MONO # 0.4 10^3/uL (0.0-0.8); NEUTROPHILS # 5.4 10^3/uL (1.5-8.5); NEUTROPHILS % 75.2 % (36.0-66.0); PLATELET COUNT, AUTOMATED 282 10^3/uL (150-450); RED BLOOD COUNT 4.15 10^6/uL (4.00-5.40); WHITE BLOOD COUNT 7.2 10^3/uL (4.0-10.0)
[2019-08-01] MEDS ORDERED: PROT20TA11 PO (16:40)
--- NOTE | 2019-08-01 16:56 | REP ---
Clinical: Chest pain . Comparison: 06/11/2019 . Findings: The mediastinum and cardiac silhouette are stable and within normal limits for portable technique. The lung julian are clear without acute consolidation, effusion, or pneumothorax. Skeletal structures are intact. Impression: No acute cardiopulmonary process appreciated. Electronically Signed by Dionicio Joe MD 08/01/2019 04:47 P
[2019-08-01 17:12] LABS: BLOOD UREA NITROGEN 11 MG/DL (7-18); CALCIUM LEVEL 9.2 MG/DL (8.5-10.1); CARBON DIOXIDE LEVEL 26 MEQ/L (21-32); CHLORIDE LEVEL 108 MEQ/L (98-107); CK-MB VALUE MASS < 1.0 NG/ML (<3.6); CPK CREATINE PHOSPHOKINASE 57 U/L (26-192); CREATININE FOR GFR 0.78 MG/DL (0.55-1.30); GLOMERULAR FILTRATION RATE > 60.0 (>60); GLUCOSE, FASTING 81 MG/DL (70-100); MB/CK RELATIVE INDEX 1.75 (< OR =4); POTASSIUM SERUM 4.1 MEQ/L (3.5-5.1); SODIUM LEVEL 138 MEQ/L (136-145); TROPONIN I < 0.02 NG/ML (< 0.10)
[2019-08-01] MEDS ORDERED: NS 1,000 ML IV ONE (18:00)
[2019-08-01] MEDS ORDERED: LORazepam 2 MG/ML VIAL (J2060) IV STA (19:33)
[2019-08-01] MEDS ORDERED: METOCLOPRAMIDE INJ 10MG/2ML VIAL (J2765) As Ordered ONE (19:39)
[2019-08-01] MEDS ORDERED: Holter Monitor (19:44)
[2019-08-01] MEDS ORDERED: ONDA4TAB6 PO (19:44)
[2019-08-01] MEDS ORDERED: METOCLOPRAMIDE INJ 10MG/2ML VIAL (J2765) IV ONE (19:45)
[2019-08-01 21:45] VITALS: BP 143/72
--- NOTE | 2019-08-02 16:59 | ECGEPIP ---
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
== END 2019-08-01 21:57 | disposition home or self-care (01) ==
LOC: EDBD 15:48 → M ED 15:48
DX: R00.2 Palpitations (principal); Z79.899 Other long term (current) drug therapy; Z88.0 Allergy status to penicillin
CPT/HCPCS: 71045; 80048; 82550; 82553; 84443; 85025; 93005; 93041; 94760; 96361; 96374; 96375; 99285; J2060; J2765

== ENCOUNTER → 2019-08-03 | Outpatient (CLI) | payer OTHER ==
[~2019-08-03] MED LIST changes: +Holter Monitor
--- NOTE | 2019-08-05 21:58 | HOLTMON ---
[facility] Test Date: 2019-08-03 Pat Name: LILLIE GILLESPIE Department: Room: - Gender: Female Library Director: CATRACHO GUERRA : 1985 Requested By: ARIELA Jean Order Number: [id number] Reading MD: Ibrahima Willis Interpretive Statements Underlying sinus rhythm with rate varying from 40 at 4:54 PM and 124 bpm at 2:22 PM, averaging 87 bpm. Rare isolated PACs averaging 6 per hour, rare atrial couplets averaging 4 per hour, to atrial triplets and 1 slow 5 beat run of ectopic atrial rhythm. Frequent isolated PVCs averaging 105 per hour, rare ventricular couplets averaging 4 per hour and no ventricular tachycardia 2 nocturnal pauses greater than 2 seconds in parent longest 2.1 seconds The patient reported he episodes of palpitations that did not appear to correlate with any rhythm or rate change. Observed ventricular ectopic activity would be considered outside normal limits but the prognosis associated with his arrhythmia is directly related to the presence and severity of any associated structural heart disease, if any. A search for any reversible potentially triggering aggravating factors would be advised i.e. excessive caffeine, nicotine, alcohol, [id number] decongestants, energizers or dietary aids etc. Electronically Signed on 08-05-2019 21:57:56 EDT by Ibrahima Willis
== END ==
LOC: M EKG 10:47
PROVIDERS: ATTEND Internal Medicine
DX: R00.2 Palpitations (principal)

== ENCOUNTER 2019-08-25 21:34 | Emergency (ER) | payer OTHER ==
[~2019-08-25] VITALS: Ht 165.1 cm; Wt 69.5 kg
[2019-08-25] MEDS ORDERED: KETOROLAC 30 MG/ML VIAL (J1885) IV ONE (23:15)
[2019-08-25] MEDS ORDERED: PANT40TA3 PO (23:23)
[2019-08-25] MEDS ORDERED: METO1TAB87 PO (23:23)
[2019-08-25 23:54] LABS: BASO % 0.4 % (0.0-1.0); EOS # 0.2 10^3/uL (0.0-0.5); HEMATOCRIT 36.1 % (36.0-47.0); HEMOGLOBIN 11.5 g/dl (12.0-15.5); LYMPH # 2.1 10^3/uL (1.5-5.0); LYMPH % 46.6 % (24.0-44.0); MEAN CORPUSCULAR HEMOGLOBIN 28.4 pg (27.0-33.0); MEAN CORPUSCULAR HGB CONC 31.9 g/dl (32.0-36.5); MEAN CORPUSCULAR VOLUME 89.1 fl (80.0-96.0); MONO # 0.4 10^3/uL (0.0-0.8); MONO % 9.3 % (0.0-5.0); NEUTROPHILS # 1.8 10^3/uL (1.5-8.5); NEUTROPHILS % 39.5 % (36.0-66.0); PLATELET COUNT, AUTOMATED 237 10^3/uL (150-450); RED BLOOD COUNT 4.05 10^6/uL (4.00-5.40); WHITE BLOOD COUNT 4.5 10^3/uL (4.0-10.0)
[2019-08-26 00:09] LABS: INR 1.07; PROTHROMBIN TIME 13.7 SECONDS (11.8-14.0)
[2019-08-26 00:10] LABS: PARTIAL THROMBOPLASTIN TIME 35.2 SECONDS (25.0-38.4)
[2019-08-26 00:19] LABS: ALBUMIN 3.7 GM/DL (3.2-5.2); ALT/SGPT 19 U/L (12-78); BILIRUBIN,DIRECT 0.1 MG/DL (0.0-0.2); BILIRUBIN,TOTAL 0.3 MG/DL (0.2-1.0); BLOOD UREA NITROGEN 11 MG/DL (7-18); CALCIUM LEVEL 8.6 MG/DL (8.5-10.1); CARBON DIOXIDE LEVEL 26 MEQ/L (21-32); CHLORIDE LEVEL 108 MEQ/L (98-107); CK-MB VALUE MASS < 1.0 NG/ML (<3.6); CPK CREATINE PHOSPHOKINASE 55 U/L (26-192); CREATININE FOR GFR 0.86 MG/DL (0.55-1.30); GLOMERULAR FILTRATION RATE > 60.0 (>60); GLUCOSE, FASTING 78 MG/DL (70-100); LIPASE 220 U/L (73-393); MB/CK RELATIVE INDEX 1.82 (< OR =4); SODIUM LEVEL 140 MEQ/L (136-145); TOTAL PROTEIN 7.5 GM/DL (6.4-8.2); TROPONIN I < 0.02 NG/ML (< 0.10)
[2019-08-26 01:15] VITALS: BP 109/72
[2019-08-26] MEDS ORDERED: SUCR1SS PO (01:44)
--- NOTE | 2019-08-26 08:12 | ECGEPIP ---
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
== END 2019-08-26 02:08 | disposition home or self-care (01) ==
LOC: M ED 21:34
DX: R07.89 Other chest pain (principal); R06.02 Shortness of breath; F33.9 Major depressive disorder, recurrent, unspecified; F41.9 Anxiety disorder, unspecified; F43.10 Post-traumatic stress disorder, unspecified; M79.7 Fibromyalgia; K21.9 Gastro-esophageal reflux disease without esophagitis; K27.9 Peptic ulcer, site unspecified, unspecified as acute or chronic, without hemorrhage or perforation; Z98.84 Bariatric surgery status; Z79.899 Other long term (current) drug therapy; Z88.0 Allergy status to penicillin; F17.210 Nicotine dependence, cigarettes, uncomplicated
CPT/HCPCS: 80048; 80076; 81001; 82550; 82553; 83690; 85025; 85610; 85730; 93005; 96374; 99284; J1885

== ENCOUNTER 2019-09-21 16:22 | Emergency (ER) | payer MEDICAID, OTHER ==
[~2019-09-21] VITALS: Ht 165.1 cm; Wt 69.3 kg
[~2019-09-21 16:22] MED LIST changes: +METO1TAB87 PO
[2019-09-21] MEDS ORDERED: diazePAM 5 MG TAB PO ONE (17:30)
[2019-09-21] MEDS ORDERED: NS 1,000 ML IV ONE (17:30)
[2019-09-21 18:22] LABS: BASO % 0.4 % (0.0-1.0); EOS # 0.2 10^3/uL (0.0-0.5); LYMPH # 2.1 10^3/uL (1.5-5.0); LYMPH % 36.4 % (24.0-44.0); MEAN CORPUSCULAR HEMOGLOBIN 28.5 pg (27.0-33.0); MEAN CORPUSCULAR HGB CONC 32.4 g/dl (32.0-36.5); MEAN CORPUSCULAR VOLUME 88.1 fl (80.0-96.0); MONO # 0.4 10^3/uL (0.0-0.8); MONO % 7.7 % (0.0-5.0); NEUTROPHILS % 52.3 % (36.0-66.0); PLATELET COUNT, AUTOMATED 249 10^3/uL (150-450); RED BLOOD COUNT 3.86 10^6/uL (4.00-5.40); WHITE BLOOD COUNT 5.7 10^3/uL (4.0-10.0)
[2019-09-21 18:48] LABS: BLOOD UREA NITROGEN 8 MG/DL (7-18); CALCIUM LEVEL 8.8 MG/DL (8.5-10.1); CARBON DIOXIDE LEVEL 26 MEQ/L (21-32); CHLORIDE LEVEL 106 MEQ/L (98-107); CREATININE FOR GFR 0.77 MG/DL (0.55-1.30); FREE T4 1.05 NG/DL (0.76-1.46); GLOMERULAR FILTRATION RATE > 60.0 (>60); GLUCOSE, FASTING 81 MG/DL (70-100); MAGNESIUM LEVEL 2.1 MG/DL (1.8-2.4); POTASSIUM SERUM 4.5 MEQ/L (3.5-5.1); SODIUM LEVEL 139 MEQ/L (136-145)
[2019-09-21 19:24] VITALS: BP 101/63
== END 2019-09-21 19:39 | disposition home or self-care (01) ==
LOC: M ED 16:22
DX: M62.40 Contracture of muscle, unspecified site (principal); M79.7 Fibromyalgia; K21.9 Gastro-esophageal reflux disease without esophagitis; F41.9 Anxiety disorder, unspecified; F43.10 Post-traumatic stress disorder, unspecified; F17.210 Nicotine dependence, cigarettes, uncomplicated; Z79.899 Other long term (current) drug therapy; Z98.0 Intestinal bypass and anastomosis status; Z98.890 Other specified postprocedural states; Z88.0 Allergy status to penicillin

== ENCOUNTER → 2019-09-30 | Outpatient (CLI) | payer OTHER, MEDICAID ==
[~2019-09-30] MED LIST changes: +BENZ200C70 PO; +CYCL10TA; +DOXY-350 PO; +DULO1CAP5; +FERR325T18; +MUCI600T31 PO; +PSEU30TA21; +VENTAER INH
--- NOTE | 2019-09-30 11:00 | REP ---
Clinical: Cough . Comparison: 08/01/2019 . Technique: PA and lateral. Findings: The mediastinum and cardiac silhouette are normal. The lung julian are clear and without acute consolidation, effusion, or pneumothorax. The skeletal structures are intact and normal. Impression: 1. No acute cardiopulmonary process. Electronically Signed by Dionicio Joe MD 09/30/2019 10:51 A
== END ==
LOC: M LRY 10:33
PROVIDERS: ATTEND Nurse Practitioner Family
DX: R05 Cough (principal)

== ENCOUNTER 2019-10-02 10:00 | Emergency (ER) | payer MEDICAID, OTHER ==
[~2019-10-02] VITALS: Ht 165.1 cm; Wt 67.7 kg
[~2019-10-02 10:00] MED LIST changes: -BENZ200C70 PO; -CYCL10TA; -DOXY-350 PO; -DULO1CAP5; -FERR325T18; -MUCI600T31 PO; -PSEU30TA21; -VENTAER INH
[2019-10-02] MEDS ORDERED: DULO1CAP5 (10:08)
[2019-10-02] MEDS ORDERED: PSEU30TA21 (10:08)
[2019-10-02] MEDS ORDERED: FERR325T18 (10:08)
[2019-10-02] MEDS ORDERED: CYCL10TA (10:08)
[2019-10-02] MEDS ORDERED: IPRATROPIUM 0.5MG/ALBUTEROL 2.5MG INH SOL UD 3ML (DUONEB)(J7620) NEB ONE (11:15)
[2019-10-02] MEDS ORDERED: BENZ200C70 PO (11:31)
[2019-10-02] MEDS ORDERED: DOXY-350 PO (11:31)
[2019-10-02] MEDS ORDERED: MUCI600T31 PO (11:31)
[2019-10-02] MEDS ORDERED: VENTAER INH (11:31)
[2019-10-02 11:50] VITALS: BP 114/79
== END 2019-10-02 11:55 | disposition home or self-care (01) ==
LOC: M ED 10:00
DX: J20.9 Acute bronchitis, unspecified (principal); F17.200 Nicotine dependence, unspecified, uncomplicated; M79.7 Fibromyalgia; K21.9 Gastro-esophageal reflux disease without esophagitis; F41.9 Anxiety disorder, unspecified; F32.9 Major depressive disorder, single episode, unspecified; F43.10 Post-traumatic stress disorder, unspecified; Z88.0 Allergy status to penicillin; Z98.84 Bariatric surgery status; Z79.899 Other long term (current) drug therapy

== ENCOUNTER 2020-01-11 12:41 | Emergency (ER) | payer OTHER ==
[~2020-01-11] VITALS: Ht 165.1 cm; Wt 66.5 kg
[~2020-01-11 12:41] MED LIST changes: +BENZ200C70 PO; +CYCL10TA; +DOXY-350 PO; +DULO1CAP5; +FERR325T18; +MUCI600T31 PO; +PSEU30TA21; +VENTAER INH
[2020-01-11 13:29] LABS: BASO % 0.5 % (0.0-1.0); EOS # 0.1 10^3/uL (0.0-0.5); EOS % 2.2 % (0.0-3.0); HEMATOCRIT 38.4 % (36.0-47.0); HEMOGLOBIN 12.5 g/dl (12.0-15.5); LYMPH # 1.4 10^3/uL (1.5-5.0); LYMPH % 35.2 % (24.0-44.0); MEAN CORPUSCULAR HEMOGLOBIN 27.7 pg (27.0-33.0); MEAN CORPUSCULAR HGB CONC 32.6 g/dl (32.0-36.5); MEAN CORPUSCULAR VOLUME 85.1 fl (80.0-96.0); MONO # 0.4 10^3/uL (0.0-0.8); MONO % 9.4 % (0.0-5.0); NEUTROPHILS # 2.1 10^3/uL (1.5-8.5); NEUTROPHILS % 52.7 % (36.0-66.0); PLATELET COUNT, AUTOMATED 308 10^3/uL (150-450); RED BLOOD COUNT 4.51 10^6/uL (4.00-5.40); WHITE BLOOD COUNT 4.1 10^3/uL (4.0-10.0)
[2020-01-11 14:03] LABS: ALBUMIN 4.1 GM/DL (3.2-5.2); ALT/SGPT 32 U/L (12-78); BILIRUBIN,DIRECT 0.2 MG/DL (0.0-0.2); BILIRUBIN,TOTAL 0.9 MG/DL (0.2-1.0); BLOOD UREA NITROGEN 7 MG/DL (7-18); CALCIUM LEVEL 8.9 MG/DL (8.5-10.1); CARBON DIOXIDE LEVEL 26 MEQ/L (21-32); CHLORIDE LEVEL 104 MEQ/L (98-107); CK-MB VALUE MASS < 1.0 NG/ML (<3.6); CPK CREATINE PHOSPHOKINASE 98 U/L (26-192); CREATININE FOR GFR 0.84 MG/DL (0.55-1.30); GLOMERULAR FILTRATION RATE > 60.0 (>60); GLUCOSE, FASTING 88 MG/DL (70-100); LIPASE 108 U/L (73-393); MB/CK RELATIVE INDEX 1.02 (< OR =4); POTASSIUM SERUM 4.1 MEQ/L (3.5-5.1); SODIUM LEVEL 140 MEQ/L (136-145); TOTAL PROTEIN 7.9 GM/DL (6.4-8.2); TROPONIN I < 0.02 NG/ML (< 0.10)
[2020-01-11] MEDS ORDERED: ONDANSETRON 4 MG ORAL DISINTEGRATING TAB (Q0162 PER 1MG) PO ONE (14:15)
--- NOTE | 2020-01-11 14:32 | REP ---
Clinical: Acute chest pain . Comparison: 09/30/2019 . Technique: PA and lateral. Findings: The mediastinum and cardiac silhouette are normal. The lung julian are clear and without acute consolidation, effusion, or pneumothorax. The skeletal structures are intact and normal. Impression: 1. No acute cardiopulmonary process. Electronically Signed by Dionicio Joe MD 01/11/2020 02:23 P
[2020-01-11 16:16] VITALS: BP 123/94
--- NOTE | 2020-01-12 04:57 | ECGEPIP ---
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
== END 2020-01-11 16:20 | disposition home or self-care (01) ==
LOC: M ED 12:41
DX: F41.0 Panic disorder [episodic paroxysmal anxiety] (principal); M79.7 Fibromyalgia; Z79.899 Other long term (current) drug therapy; Z88.0 Allergy status to penicillin; F17.210 Nicotine dependence, cigarettes, uncomplicated
CPT/HCPCS: 36415; 71046; 80048; 80076; 82550; 82553; 83690; 85025; 85379; 93005; 99284; Q0162

== ENCOUNTER 2020-05-06 21:43 | Emergency (ER) | payer OTHER ==
[~2020-05-06] VITALS: Ht 165.1 cm; Wt 68.2 kg
[~2020-05-06 21:43] MED LIST changes: +CYCL-707; +CYCL-707 PO; -CYCL10TA; -CYCL10TA PO; -ESCI20TA PO; +ESCI20TA16 PO; -MELA3TAB63 PO; +MELA3TAB70 PO; +PANT40TA29 PO; -PANT40TA3 PO
[2020-05-06] MEDS ORDERED: XANA0.5T PO (21:48)
[2020-05-06] MEDS ORDERED: ZANA4CAP PO (21:48)
[2020-05-06] MEDS ORDERED: LIDOCAINE 5% (LIDODERM) PATCH TD ONE (22:15)
[2020-05-06] MEDS ORDERED: KETOROLAC 60MG 2ML VIAL IM ONE (22:15)
[2020-05-06] MEDS ORDERED: methylPREDNISolone 125MG 2ML VIAL IM ONE (22:15)
[2020-05-06] MEDS ORDERED: LIDO5DIS41 TOP (22:54)
[2020-05-06 23:00] VITALS: BP 126/67
[2020-05-07] MEDS ORDERED: **NOTE PATIENT COMMENT** MISC XX ONE (09:00)
[2020-11-07] MEDS ORDERED: MEDICAL MARIJUANNA (00:26)
[2020-11-07] MEDS ORDERED: PRAZ2CAP (00:26)
[2020-11-07] MEDS ORDERED: QUET200T2 (00:26)
[2020-11-07] MEDS ORDERED: DULO1CAP6 (00:26)
== END 2020-05-06 23:01 | disposition home or self-care (01) ==
LOC: M ED 21:43
DX: M54.5 Low back pain (principal); M79.7 Fibromyalgia; I10 Essential (primary) hypertension; J30.2 Other seasonal allergic rhinitis; Z91.81 History of falling; Z88.0 Allergy status to penicillin; Z98.84 Bariatric surgery status; Z79.899 Other long term (current) drug therapy; K21.9 Gastro-esophageal reflux disease without esophagitis; F41.9 Anxiety disorder, unspecified; F32.9 Major depressive disorder, single episode, unspecified; F43.10 Post-traumatic stress disorder, unspecified
CPT/HCPCS: 99283; J1885; J2930

== ENCOUNTER → 2020-05-23 | Outpatient (CLI) | payer OTHER ==
[~2020-05-23] MED LIST changes: +ESCI20TA PO; -ESCI20TA16 PO; +LIDO5DIS41 TOP; +MELA3TAB63 PO; -MELA3TAB70 PO; -PANT40TA29 PO; +PANT40TA3 PO; +ZANA4CAP PO
--- NOTE | 2020-05-23 09:55 | REP ---
05/23/2020. Indication: Lumbar radiculopathy. Technique: Multiplanar short and long TR sequences of the lumbar spine were performed without IV Gadolinium. Comparison: None. Findings: Vertebral body alignment is anatomic. There is disc desiccation and disc space narrowing at L5/S1. No worrisome marrow or cord signal is present. The paraspinal soft tissues are unremarkable. L1/L2, L2/L3, L3/L4 and L4/L5: Unremarkable. L5/S1: Diffuse disc bulge is present with mild spinal canal and neural foraminal narrowing. Impression: Degenerative sequelae at L5/S1 without nerve root impingement demonstrated. Electronically Signed by Jos Francisco DO 05/23/2020 09:45 A
== END ==
LOC: M RAD 06:35
PROVIDERS: ATTEND Pain Medicine Interventional Pain Medicine
DX: M51.26 Other intervertebral disc displacement, lumbar region (principal); M54.16 Radiculopathy, lumbar region

== ENCOUNTER → 2020-06-14 | Outpatient (CLI) | payer OTHER ==
[~2020-06-14] MED LIST changes: +PANT40TA29 PO; -PANT40TA3 PO
--- NOTE | 2020-06-14 07:58 | REPVR ---
PROCEDURE INFORMATION: Exam: MR Thoracic Spine Without Contrast Exam date and time: 06/14/2020 7:19 AM Age: 35 years old Clinical indication: Condition or disease; Spondylosis; Thoracolumbar; With radiculopathy; Additional info: Thoracic spondylosis TECHNIQUE: Imaging protocol: Multiplanar magnetic resonance images of the thoracic spine without contrast. COMPARISON: 1. CT Spine,thoracic w/o contrast 10/13/2018 8:18 PM 2. MRI-Spine, L.S. without con 05/23/2020 7:05:05 AM FINDINGS: Vertebrae: There is normal alignment of the thoracic spine. A mild wedge-shaped deformity and slight depression of the central superior endplate of T11 and a small central depression of the superior endplate of T3 appear unchanged from the prior CT scan and may be developmental or related to remote prior trauma. No acute fractures are identified. The bone marrow signal appears normal. Spinal cord: The visualized spinal cord is normal in signal and morphology. The conus medullaris terminates at the T12-L1 level. Discs/Spinal canal/Neural foramina: There are small anterior endplate spurs in the mid and lower thoracic spine, as seen on the prior CT scan. The T6-T7 disc appears narrow but is normal in signal. There is no associated disc bulge or herniation. Disc heights and signal are otherwise normal. No significant spinal canal stenosis is seen. The neural foramen are patent at each level bilaterally. Soft tissues: The paraspinous soft tissues appear unremarkable. IMPRESSION: 1. Mild degenerative endplate spurs. No disc bulges or protrusions. No central or foraminal stenosis. 2. Small depressions of the superior endplates at T3 and T11 are unchanged from the prior exam, and may be developmental or related to remote prior trauma. Electronically signed by: Cleo Valero On 06/14/2020 07:57:35 AM
== END ==
LOC: M RAD 06:41
PROVIDERS: ATTEND Pain Medicine Interventional Pain Medicine
DX: M47.814 Spondylosis without myelopathy or radiculopathy, thoracic region (principal)

== ENCOUNTER → 2020-07-04 | Emergency (ER) | payer OTHER ==
[~2020-07-04] MED LIST changes: -PANT40TA29 PO; +PANT40TA3 PO
== END | disposition left against medical advice (07) ==
LOC: M ED 22:05
DX: Z53.21 Procedure and treatment not carried out due to patient leaving prior to being seen by health care provider (principal)

== ENCOUNTER → 2021-12-22 | Outpatient (CLI) | payer OTHER, MEDICAID ==
[~2021-12-22] MED LIST changes: +DULO1CAP6; -ESCI20TA PO; +ESCI20TA16 PO; +MEDICAL MARIJUANNA; -MELA3TAB63 PO; +MELA3TAB70 PO; +PANT40TA29 PO; -PANT40TA3 PO; +PRAZ2CAP; +QUET200T2
== END ==
LOC: M WHC 09:12
PROVIDERS: ATTEND Obstetrics & Gynecology
DX: N83.291 Other ovarian cyst, right side (principal)

== ENCOUNTER 2022-03-13 19:07 | Emergency (ER) | payer MEDICAID, OTHER ==
[~2022-03-13] VITALS: Ht 165.1 cm; Wt 75.0 kg
[2022-03-13] MEDS ORDERED: LORazepam 2 MG/ML VIAL IV STA (19:36)
[2022-03-13] MEDS ORDERED: NS 1,000 ML IV ONE (19:40)
[2022-03-13 20:21] LABS: BASO % 0.5 % (0.0-1.0); EOS # 0.1 10^3/uL (0.0-0.5); EOS % 1.6 % (0.0-3.0); HEMATOCRIT 37.9 % (36.0-47.0); HEMOGLOBIN 12.7 g/dl (12.0-15.5); LYMPH # 1.2 10^3/uL (1.5-5.0); LYMPH % 32.2 % (24.0-44.0); MEAN CORPUSCULAR HEMOGLOBIN 29.1 pg (27.0-33.0); MEAN CORPUSCULAR HGB CONC 33.5 g/dl (32.0-36.5); MEAN CORPUSCULAR VOLUME 86.7 fl (80.0-96.0); MONO # 0.5 10^3/uL (0.0-0.8); MONO % 12.7 % (2.0-8.0); NEUTROPHILS % 52.7 % (36.0-66.0); RED BLOOD COUNT 4.37 10^6/uL (4.00-5.40); WHITE BLOOD COUNT 3.9 10^3/uL (4.0-10.0)
[2022-03-13 20:35] LABS: PLATELET COUNT, AUTOMATED 201 10^3/uL (150-450)
[2022-03-13 20:38] LABS: CK-MB VALUE MASS < 1.0 NG/ML (<3.6); CPK CREATINE PHOSPHOKINASE 73 U/L (26-192); MB/CK RELATIVE INDEX 1.37 (< OR =4)
[2022-03-13 21:41] LABS: ALBUMIN 3.5 GM/DL (3.2-5.2); ALT/SGPT 41 U/L (12-78); BILIRUBIN,DIRECT 0.1 MG/DL (0.0-0.2); BILIRUBIN,TOTAL 0.3 MG/DL (0.2-1.0); BLOOD UREA NITROGEN 6 MG/DL (7-18); CALCIUM LEVEL 8.2 MG/DL (8.5-10.1); CARBON DIOXIDE LEVEL 24 MEQ/L (21-32); CHLORIDE LEVEL 109 MEQ/L (98-107); GLOMERULAR FILTRATION RATE > 60.0 (>60); GLUCOSE, FASTING 78 MG/DL (70-100); LIPASE 137 U/L (73-393); POTASSIUM SERUM 3.9 MEQ/L (3.5-5.1); SODIUM LEVEL 139 MEQ/L (136-145); TOTAL PROTEIN 6.7 GM/DL (6.4-8.2)
[2022-03-13 21:42] LABS: CK-MB VALUE MASS < 1.0 NG/ML (<3.6); CPK CREATINE PHOSPHOKINASE 62 U/L (26-192); MB/CK RELATIVE INDEX 1.61 (< OR =4)
[2022-03-13] MEDS ORDERED: GI COCKTAIL 50ML BTL(HYOSCYAMINE/MAALOX/LIDOCAINE VISCOUS)(1:3:1) PO ONE (21:55)
[2022-03-13 23:16] VITALS: BP 120/70
== END 2022-03-13 23:22 | disposition home or self-care (01) ==
LOC: EDBD 19:07 → M ED 19:07
DX: F41.1 Generalized anxiety disorder (principal); K21.9 Gastro-esophageal reflux disease without esophagitis; M79.7 Fibromyalgia; Z79.899 Other long term (current) drug therapy; Z87.11 Personal history of peptic ulcer disease; Z88.0 Allergy status to penicillin; Z98.84 Bariatric surgery status; F17.210 Nicotine dependence, cigarettes, uncomplicated
CPT/HCPCS: 71045; 80048; 80076; 82550; 82553; 83690; 85025; 93005; 93041; 96361; 96374; 99285; J2060